=== PATIENT | male | born 1970 | race American Indian/Alaskan Native ===

== ENCOUNTER 2016-12-28 17:21 | Emergency (ER) | payer SELFPAY ==
[2016-12-28 17:21] VITALS: BMI 30.8
[2016-12-28 17:27] VITALS: BP 128/90; PULSE 93; RESP 16; TEMP 98.6; O2SAT 100
--- NOTE | 2016-12-28 18:00 | ED PDOC ---
HPI: General Adult Time Seen by Provider: 12/28/16 17:40 Chief Complaint (Nursing): Headache Chief Complaint (Provider): Neck pain History Per: Patient History/Exam Limitations: no limitations Onset/Duration Of Symptoms: Hrs (5x hours to provider) Current Symptoms Are (Timing): Still Present Severity: Moderate Additional Complaint(s): 46 year old male with a pertinent medical history of diabetes presents to the ED with complaints of neck pain and dizziness that started 5x hours prior to arrival. 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 He denies having loss of consciousness after the injury and headaches. PMD: Not provided. Past Medical History Reviewed: Historical Data, Nursing Documentation, Vital Signs Vital Signs: Last Vital Signs Temp 98.6 F 12/28/16 17:23 Pulse 93 H 12/28/16 17:23 Resp 16 12/28/16 17:23 BP 128/90 12/28/16 17:23 Pulse Ox 100 12/28/16 20:19 - Medical History PMH: Anxiety, Depression, Diabetes (NIDDM), HTN Denies: Chronic Kidney Disease - Surgical History Other surgeries: orthopedic surgery: right foot screws. left rotator cuff (2x) - Family History Family History: States: Unknown Family Hx - Social History Current smoker - smoking cessation education provided: No Alcohol: None Drugs: Denies - Immunization History Hx Tetanus Toxoid Vaccination: No Hx Influenza Vaccination: No Hx Pneumococcal Vaccination: No - Home Medications Home Medications: Ambulatory Orders Medication Instructions Recorded Allopurinol [Zyloprim] 100 mg PO DAILY 06/20/15 Omeprazole [Prilosec] 40 mg PO DAILY 06/20/15 Simvastatin [Zocor] 20 mg PO HS 06/20/15 Valsartan [Diovan] 160 mg PO DAILY 06/20/15 metFORMIN [glucOPHAGE] 500 mg PO BID 06/20/15 Indomethacin 25 mg PO Q6 #20 capsule 06/29/15 Ciprofloxacin HCl [Cipro] 500 mg PO BID #0 tablet 09/10/15 Docusate [Colace] 100 mg PO BID #0 cap 09/10/15 Metronidazole [Flagyl] 250 mg PO Q8H #0 tab 09/10/15 Albuterol HFA [Ventolin HFA 90 1 - 2 puff IH Q6 PRN #1 inhaler 09/21/15 mcg/actuation (8 g)] Bacitracin Ointment [Bacitracin] 1 applic TOP BID #1 tube 10/07/15 Albuterol HFA [Ventolin HFA 90 2 puff IH [id number] #1 unit 10/10/15 mcg/actuation (8 g)] Azithromycin [Zithromax] 250 mg PO DAILY #6 tab 10/10/15 Dicyclomine [Bentyl] 20 mg PO Q12 PRN #20 tab 11/14/15 Naproxen [Naprosyn] 500 mg PO BID PRN #30 tab 12/06/15 Naproxen [Naprosyn Tab] 375 mg PO Q8 PRN #21 tab 12/28/16 - Allergies Allergies/Adverse Reactions: Allergies Allergy/AdvReac Type Severity Reaction Status Date / Time No Known Allergies Allergy Verified 12/28/16 17:23 Review of Systems ROS Statement: Except As Marked, All Systems Reviewed And Found Negative Musculoskeletal: Positive for: Neck Pain Neurological: Positive for: Dizziness. Negative for: Headache Physical Exam - Reviewed Nursing Documentation Reviewed: Yes Vital Signs Reviewed: Yes - Physical Exam Appears: Positive for: Well, Non-toxic, No Acute Distress Head Exam: Positive for: ATRAUMATIC, NORMOCEPHALIC Skin: Positive for: Normal Color, Warm, Dry Eye Exam: Positive for: Normal appearance Cardiovascular/Chest: Positive for: Regular Rate, Rhythm Respiratory: Positive for: Normal Breath Sounds. Negative for: Respiratory Distress Back: Positive for: Vertebral Tenderness (tenderness around T1) Extremity: Positive for: Normal ROM Neurologic/Psych: Positive for: Alert, Oriented (3x) - ECG O2 Sat by Pulse Oximetry: 100 (RA) Pulse Ox Interpretation: Normal - CT Scan/US CT head w/o contrast Other Rad Studies (CT/US): Read By Radiologist, Radiology Report Reviewed (See MDM section for findings) CT cervical spine w/o contrast Other Rad Studies (CT/US): Read By Radiologist, Radiology Report Reviewed (see MDM section for findings) Medical Decision Making Medical Decision Makin:40 Iniital impression: 46 year old male with dizziness and neck pain status post injury. Initial plan: * CT cervical spine w/o contrast * CT head w/o contrast * reevaluation 19:37 CT cervical spine w/o contrast read and reviewed by radiologist. FINDINGS: Vertebrae: Multilevel spondylosis of the cervical spine. Multilevel bilateral neural foraminal narrowing. Retrolisthesis of C3 on C4 and C4 on C5 and C3 on C6. No acute fracture. Discs/spinal canal/neural foramina: No displaced fracture. Cervical straightening is present, which may be due to degenerative changes, cervical collar placement, positioning, muscular spasm or ligamentous injury. Correlate clinically. No spinal canal stenosis. Soft tissues: See above. Thyroid: Right thyroid nodule. Lung apices: Unremarkable as visualized. IMPRESSION: No displaced fracture. Multilevel spondylosis. Cervical straightening is present , which may be due to degenerative changes, cervical collar placement, positioning, muscular spasm or ligamentous injury. Correlate clinically. 19:39 CT head w/o contrast read and reviewed by radiologist. FINDINGS: Brain: Areas of decreased attenuation noted within the periventricular and subcortical white matter likely related to chronic microangiopathic ischemic changes given the patient's stated age. Streak artifact limits evaluation of the skull base. No evidence of acute intracranial hemorrhage. Correlate clinically. Ventricles: Unremarkable. No ventriculomegaly. Bones/joints: No displaced fracture. Soft tissues: Unremarkable. Sinuses: Unremarkable as visualized. No acute sinusitis. Mastoid air cells: Unremarkable as visualized. No mastoid effusion. IMPRESSION: Streak artifact limits evaluation of the skull base. No evidence of acute intracranial hemorrhage. Correlate clinically Scribe Attestation: Documented by Sarika Hendrickson, acting as a scribe for Sergio Huffman PA-C. Provider Scribe Attestation: All medical record entries made by the Scribe were at my direction and personally dictated by me. I have reviewed the chart and agree that the record accurately reflects my personal performance of the history, physical exam, medical decision making, and the department course for this patient. I have also personally directed, reviewed, and agree with the discharge instructions and disposition. Disposition - Clinical Impression Clinical Impression: Head injury, Contusion - Patient ED Disposition Is Patient to be Admitted: No - Disposition Referrals: [facility] [Outside] Disposition: Routine/Home Disposition Time: 20:12 Condition: FAIR Prescriptions: Naproxen [Naprosyn Tab] 375 mg PO Q8 PRN #21 tab PRN Reason: Pain, Severe (8-10) Instructions: Head Injury (ED), Contusion in Adults (DC) Forms: [employer] (Swedish)
--- NOTE | 2016-12-29 07:27 | CT ---
PROCEDURE: CT HEAD WITHOUT CONTRAST. HISTORY: pot dropped on head; c/o headache COMPARISON: None available. TECHNIQUE: Axial computed tomography images were obtained through the head/brain without intravenous contrast. Radiation dose: Total exam DLP = 905 mGy-cm. This CT exam was performed using one or more of the following dose reduction techniques: Automated exposure control, adjustment of the mA and/or kV according to patient size, and/or use of iterative reconstruction technique. FINDINGS: HEMORRHAGE: No intracranial hemorrhage. BRAIN: Overall parenchymal density is unremarkable with preserved seymour-white matter differentiation above and below the tentorium. No mass effect identified throughout. Sulci and cisterns appear within normal limits diffusely. VENTRICLES: Unremarkable. No hydrocephalus. CALVARIUM: Unremarkable. PARANASAL SINUSES: Unremarkable as visualized. No significant inflammatory changes. MASTOID AIR CELLS: Unremarkable as visualized. No inflammatory changes. OTHER FINDINGS: None. IMPRESSION: Normal CT of the Head.
--- NOTE | 2016-12-29 07:35 | CT ---
PROCEDURE: CT Cervical Spine without contrast HISTORY: Trauma COMPARISON: None available. TECHNIQUE: Axial computed tomography images were obtained of the cervical spine without the use of intravenous contrast. Coronal and sagittal reformatted images were created and reviewed. Radiation dose: Total exam DLP = 505 mGy-cm. This CT exam was performed using one or more of the following dose reduction techniques: Automated exposure control, adjustment of the mA and/or kV according to patient size, and/or use of iterative reconstruction technique. FINDINGS: VERTEBRAE: No fracture. Normal alignment. No destructive bony lesion. DISCS/SPINAL CANAL/NEURAL FORAMINA: No significant central canal or neural foraminal stenosis from C2-3 to C4-5, and from C6-7 and C7-T1. However, at C5-6, a disc osteophyte complex causes mild central canal stenosis with contributions from osteophytes at the of the bilateral uncovertebral joints results in mild bilateral neural foraminal stenosis as well. No prominent disc herniations appreciable however MRI is more sensitive and can be performed for follow-up if clinically warranted. PARASPINAL SOFT TISSUES: Unremarkable. OTHER FINDINGS: None. IMPRESSION: 1. No definitive posttraumatic findings acutely. 2. Mild degenerative central canal stenosis C5-6 as well as bilateral neural foramina at this level. 3. No gross disc herniation appreciable however MRI can be utilized for further characterization if clinically warranted.
== END 2016-12-28 20:28 | disposition home or self-care (01) ==
LOC: H.ER 17:21
DX: S09.90XA Unspecified injury of head, initial encounter (principal); W22.8XXA Striking against or struck by other objects, initial encounter; Y99.0 Civilian activity done for income or pay; E11.9 Type 2 diabetes mellitus without complications; F32.9 Major depressive disorder, single episode, unspecified; F41.9 Anxiety disorder, unspecified; I10 Essential (primary) hypertension; Z79.84 Long term (current) use of oral hypoglycemic drugs

== ENCOUNTER 2016-12-29 22:41 | Emergency (ER) | payer OTHER ==
[2016-12-29 22:41] VITALS: BMI 30.8
[2016-12-29] MEDS ORDERED: Amoxicillin-Clav 875-125 mg Tab PO SCH (23:30)
--- NOTE | 2016-12-29 23:36 | ED PDOC ---
HPI: Abdomen Time Seen by Provider: 12/29/16 23:08 Chief Complaint (Nursing): Abdominal Pain History Per: Patient History/Exam Limitations: no limitations Onset/Duration Of Symptoms: Gradual Severity: Mild Location Of Pain/Discomfort: Diffuse Quality Of Discomfort: Dull Associated Symptoms: denies: Fever, Chills, Nausea, Vomiting Exacerbating Factors: None Alleviating Factors: None Additional History Per: Patient Additional Complaint(s): Patient having pain and bleeding from rectum. Patient stating he has red blood w cleaning after bowel movement. Patient has lower stomach pain, 08/01. Hx of colitis Past Medical History Reviewed: Historical Data, Nursing Documentation, Vital Signs Vital Signs: Last Vital Signs Temp 99.1 F 12/29/16 22:51 Pulse 80 12/29/16 22:51 Resp 12 12/29/16 22:51 BP 150/88 12/29/16 22:51 Pulse Ox 99 12/29/16 23:36 - Medical History PMH: Anxiety, COPD, Depression, Diabetes (NIDDM), Emphysema, HTN Denies: Asthma, Chronic Kidney Disease - Family History Family History: States: Unknown Family Hx - Living Arrangements Living Arrangements: With Family - Social History Current smoker - smoking cessation education provided: No Drugs: Denies - Immunization History Hx Tetanus Toxoid Vaccination: No Hx Influenza Vaccination: No Hx Pneumococcal Vaccination: No - Home Medications Home Medications: Ambulatory Orders Medication Instructions Recorded Allopurinol [Zyloprim] 100 mg PO DAILY 06/20/15 Omeprazole [Prilosec] 40 mg PO DAILY 06/20/15 Simvastatin [Zocor] 20 mg PO HS 06/20/15 Valsartan [Diovan] 160 mg PO DAILY 06/20/15 metFORMIN [glucOPHAGE] 500 mg PO BID 06/20/15 Indomethacin 25 mg PO Q6 #20 capsule 06/29/15 Ciprofloxacin HCl [Cipro] 500 mg PO BID #0 tablet 09/10/15 Docusate [Colace] 100 mg PO BID #0 cap 09/10/15 Metronidazole [Flagyl] 250 mg PO Q8H #0 tab 09/10/15 Albuterol HFA [Ventolin HFA 90 1 - 2 puff IH Q6 PRN #1 inhaler 09/21/15 mcg/actuation (8 g)] Bacitracin Ointment [Bacitracin] 1 applic TOP BID #1 tube 10/07/15 Albuterol HFA [Ventolin HFA 90 2 puff IH [id number] #1 unit 10/10/15 mcg/actuation (8 g)] Azithromycin [Zithromax] 250 mg PO DAILY #6 tab 10/10/15 Dicyclomine [Bentyl] 20 mg PO Q12 PRN #20 tab 11/14/15 Naproxen [Naprosyn] 500 mg PO BID PRN #30 tab 12/06/15 Naproxen [Naprosyn Tab] 375 mg PO Q8 PRN #21 tab 12/28/16 Acetaminophen 650 mg PO Q6 #30 capsule 12/30/16 Amoxicillin/Clavulanate [Augmentin 1 tab PO BID 14 Days 12/30/16 875 MG-125 MG] - Allergies Allergies/Adverse Reactions: Allergies Allergy/AdvReac Type Severity Reaction Status Date / Time No Known Allergies Allergy Verified 12/28/16 17:23 Review of Systems ROS Statement: Except As Marked, All Systems Reviewed And Found Negative Constitutional: Negative for: Fever, Chills Cardiovascular: Negative for: Chest Pain, Palpitations, Orthopnea Respiratory: Negative for: Cough, Shortness of Breath Gastrointestinal: Positive for: Abdominal Pain, Hematochezia. Negative for: Nausea, Vomiting, Hematemesis Genitourinary Male: Negative for: Dysuria Neurological: Negative for: Weakness, Numbness Physical Exam - Reviewed Nursing Documentation Reviewed: Yes Vital Signs Reviewed: Yes - Physical Exam Appears: Positive for: Well, No Acute Distress Head Exam: Positive for: NORMAL INSPECTION, NORMOCEPHALIC Eye Exam: Positive for: Normal appearance, PERRL Neck: Positive for: Normal, Painless ROM, Supple Cardiovascular/Chest: Positive for: Regular Rate, Rhythm, Chest Non Tender Respiratory: Positive for: Normal Breath Sounds. Negative for: Decreased Breath Sounds, Accessory Muscle Use, Crackles, Rales, Rhonchi, Stridor, Wheezing , Respiratory Distress Gastrointestinal/Abdominal: Positive for: Normal Exam, Bowel Sounds, Soft. Negative for: Tenderness Back: Positive for: Normal Inspection. Negative for: L CVA Tenderness, R CVA Tenderness Rectal: Positive for: Rectal Tone Is: (nml), Blood Streaked Stool, Hemorrhoids ( mild non thrombosed). Negative for: Tenderness Extremity: Positive for: Normal ROM. Negative for: Tenderness, Pedal Edema, Calf Tenderness, Deformity, Swelling Neurologic/Psych: Positive for: Alert, auto body repairman II-XII, Oriented. Negative for: Motor/Sensory Deficits - Laboratory Results Result Diagrams: 12/29/16 23:45 12/29/16 23:45 - ECG O2 Sat by Pulse Oximetry: 99 Pulse Ox Interpretation: Normal - Progress ED Course And Treament: labs nml repeat abd exam nml advise close f/u in emd clinic. advise abx Re-evaluation Time: 23:36 Condition: Improved Disposition - Clinical Impression Clinical Impression: Colitis, Bleeding hemorrhoid - Patient ED Disposition Is Patient to be Admitted: No Counseled Patient/Family Regarding: Studies Performed, Diagnosis, Need For Followup, Rx Given - Disposition Referrals: [facility] [place] [Outside] (2 to 3 days) Disposition: Routine/Home Disposition Time: 00:02 Condition: GOOD Prescriptions: Acetaminophen 650 mg PO Q6 #30 capsule Amoxicillin/Clavulanate [Augmentin 875 MG-125 MG] 1 tab PO BID 14 Days Instructions: Rectal Bleeding (ED), Hemorrhoids (ED) Forms: [employer] ([place])
[2016-12-29] MEDS ORDERED: Amoxicillin-Clav 875-125 mg Tab PO ONE (23:47)
[2016-12-29 23:48] LABS: BASO % 0.5 % (0.0-2.0); EOS # 0.1 K/uL (0.0-0.7); EOS % 1.4 % (0.0-4.0); HEMATOCRIT 38.5 % (35.0-51.0); LYMPH # 1.2 K/uL (1.0-4.3); LYMPH % 25.7 % (20.0-40.0); MEAN CELL VOLUME 89.8 fl (80.0-94.0); MEAN CORPUSCULAR HEMOGLOBIN 29.2 pg (27.0-31.0); MEAN CORPUSCULAR HGB CONC 32.5 g/dL (33.0-37.0); MEAN PLATELET VOLUME 9.2 fl (7.2-11.7); MONO # 0.5 K/uL (0.0-0.8); MONO % 11.5 % (0.0-10.0); NEUT # 2.9 K/uL (1.8-7.0); NEUT % 60.9 % (50.0-75.0); RED CELL DISTRIBUTION WIDTH 14.4 % (11.5-14.5); WHITE BLOOD COUNT 4.8 K/uL (4.8-10.8)
[2016-12-29 23:57] LABS: ALB/GLOB RATIO 1.3 (1.0-2.1); BILIRUBIN,TOTAL 0.4 mg/dl (0.2-1.3); CALCIUM 9.2 mg/dL (8.4-10.2); POTASSIUM 4.4 MMOL/L (3.6-5.0); TOTAL PROTEIN 6.9 G/DL (6.3-8.2)
[2016-12-30 00:19] VITALS: BP 140/80; PULSE 83; RESP 17; TEMP 98.5; O2SAT 98
== END 2016-12-30 00:15 | disposition home or self-care (01) ==
LOC: H.ER 22:41
DX: K64.9 Unspecified hemorrhoids (principal); K52.9 Noninfective gastroenteritis and colitis, unspecified; E11.9 Type 2 diabetes mellitus without complications; F32.9 Major depressive disorder, single episode, unspecified; F41.9 Anxiety disorder, unspecified; I10 Essential (primary) hypertension; Z79.84 Long term (current) use of oral hypoglycemic drugs

== ENCOUNTER 2017-01-16 11:41 | Emergency (ER) | payer SELFPAY ==
[2017-01-16 11:41] VITALS: BMI 30.8
[2017-01-16 12:01] VITALS: BP 138/90; PULSE 77; RESP 18; TEMP 98; O2SAT 100
--- NOTE | 2017-01-16 12:56 | ED PDOC ---
HPI: Back Time Seen by Provider: 01/16/17 12:05 Chief Complaint (Nursing): Back Pain Chief Complaint (Provider): tailbone pain History Per: Patient History/Exam Limitations: no limitations Onset/Duration Of Symptoms: Days (x 2-3 weeks) Current Symptoms Are (Timing): Still Present Additional Complaint(s): Chilango is a 46 y/o male with a past medical history of COPD, Diabetes, CAD, and Colitis, who presents to the ED complaining of pain to tailbone after sustaining a fall 2-3 weeks ago. Reports he fell on his tailbone, and now has pain that worsens with walking or sneezing or any movement. He has been taking Tylenol for pain without relief, last dose was yesterday. Patient denies radiation of pain to legs and he denies any bowel or bladder dysfunction. PMD: none Past Medical History Reviewed: Historical Data, Nursing Documentation, Vital Signs Vital Signs: Last Vital Signs Temp 98 F 01/16/17 11:58 Pulse 77 01/16/17 11:58 Resp 18 01/16/17 11:58 BP 138/90 01/16/17 11:58 Pulse Ox 100 01/16/17 11:58 - Medical History PMH: Anxiety, COPD, Depression, Diabetes (NIDDM), HTN - Surgical History Surgical History: Coronary Stent Other surgeries: Left shoulder pain, right foot surgery - Family History Family History: States: No Known Family Hx - Living Arrangements Living Arrangements: Alone - Social History Current smoker - smoking cessation education provided: Yes (quit 2 weeks ago) Alcohol: None Drugs: Denies - Home Medications Home Medications: Ambulatory Orders Medication Instructions Recorded Allopurinol [Zyloprim] 100 mg PO DAILY 06/20/15 Omeprazole [Prilosec] 40 mg PO DAILY 06/20/15 Simvastatin [Zocor] 20 mg PO HS 06/20/15 Valsartan [Diovan] 160 mg PO DAILY 06/20/15 metFORMIN [glucOPHAGE] 500 mg PO BID 06/20/15 Indomethacin 25 mg PO Q6 #20 capsule 06/29/15 Ciprofloxacin HCl [Cipro] 500 mg PO BID #0 tablet 09/10/15 Docusate [Colace] 100 mg PO BID #0 cap 09/10/15 Metronidazole [Flagyl] 250 mg PO Q8H #0 tab 09/10/15 Albuterol HFA [Ventolin HFA 90 1 - 2 puff IH Q6 PRN #1 inhaler 09/21/15 mcg/actuation (8 g)] Bacitracin Ointment [Bacitracin] 1 applic TOP BID #1 tube 10/07/15 Albuterol HFA [Ventolin HFA 90 2 puff IH [id number] #1 unit 10/10/15 mcg/actuation (8 g)] Azithromycin [Zithromax] 250 mg PO DAILY #6 tab 10/10/15 Dicyclomine [Bentyl] 20 mg PO Q12 PRN #20 tab 11/14/15 Naproxen [Naprosyn] 500 mg PO BID PRN #30 tab 12/06/15 Naproxen [Naprosyn Tab] 375 mg PO Q8 PRN #21 tab 12/28/16 Acetaminophen 650 mg PO Q6 #30 capsule 12/30/16 Amoxicillin/Clavulanate [Augmentin 1 tab PO BID 14 Days tab 12/30/16 875 MG-125 MG] Ibuprofen [Motrin Tab] 800 mg PO Q8 PRN #20 tab 01/16/17 - Allergies Allergies/Adverse Reactions: Allergies Allergy/AdvReac Type Severity Reaction Status Date / Time No Known Allergies Allergy Verified 12/28/16 17:23 Review of Systems ROS Statement: Except As Marked, All Systems Reviewed And Found Negative Genitourinary Male: Negative for: Dysuria, Frequency, Incontinence Musculoskeletal: Positive for: Back Pain (pain to tailbone region s/p fall 3 weeks ago) Neurological: Negative for: Weakness, Numbness Physical Exam - Reviewed Nursing Documentation Reviewed: Yes Vital Signs Reviewed: Yes - Physical Exam Appears: Positive for: Well, Non-toxic, No Acute Distress Head Exam: Positive for: ATRAUMATIC, NORMAL INSPECTION, NORMOCEPHALIC Skin: Positive for: Normal Color. Negative for: Rash Eye Exam: Positive for: Normal appearance Back: Positive for: Vertebral Tenderness (Tenderness to the sacral and coccygeal region with mild STS, no ecchymosis or deformity noted) Extremity: Positive for: Normal ROM, Other (negative bilateral straight leg raise) Neurologic/Psych: Positive for: Alert, Oriented, Gait (steady) - ECG O2 Sat by Pulse Oximetry: 100 (RA) Pulse Ox Interpretation: Normal - Other Rad sacrum/coccyx x-ray X-Ray: Interpreted by Me, Viewed By Me X-Ray Interpretation: no fx, no dis Medical Decision Making Medical Decision Makin46 year old with tailbone injury Time: 12:56 Initial Plan: --Ordered X-Ray Sacrum/Coccyx --Patient given Toradol injection IM Patient is aware of x-ray results, all questions answered. Patient feels better after Toradol injection. Prescription given for Motrin. Patient referred to clinic for follow-up. Scribe Attestation: Documented by Laura Akbar, acting as a scribe for Marily Jefferson PA-C Provider Scribe Attestation: All medical record entries made by the Scribe were at my direction and personally dictated by me. I have reviewed the chart and agree that the record accurately reflects my personal performance of the history, physical exam, medical decision making, and the department course for this patient. I have also personally directed, reviewed, and agree with the discharge instructions and disposition. Disposition - Clinical Impression Clinical Impression: Coccygeal contusion - Patient ED Disposition Is Patient to be Admitted: No Counseled Patient/Family Regarding: Studies Performed, Diagnosis, Need For Followup, Rx Given - Disposition Referrals: [facility] [Outside] Disposition: Routine/Home Disposition Time: 14:09 Condition: IMPROVED Additional Instructions: Ice and rest the affected area. Take prescription meds as directed as needed for pain. Follow-up with clinic in 2-3 days. Prescriptions: Ibuprofen [Motrin Tab] 800 mg PO Q8 PRN #20 tab PRN Reason: Pain, Moderate (4-7) Instructions: Coccyx Injury (ED) Forms: [employer] (Burmese)
--- NOTE | 2017-01-16 14:35 | RAD ---
PROCEDURE: Radiographs of the Sacrum and Coccyx HISTORY: Trauma COMPARISON: None available. TECHNIQUE: Frontal and lateral views of the sacrum and coccyx FINDINGS: BONES: Sacrum and coccyx are normal in appearance. The sacrococcygeal angulation is normal. No acute fracture or focal lesion. Bone alignment and mineralization are normal. SACROILIAC JOINTS: The sacroiliac joints are normal. There is mild degenerative osteoarthrosis at the sacrococcygeal joint. OTHER FINDINGS: None. IMPRESSION: No acute fracture or dislocation.
== END 2017-01-16 14:23 | disposition home or self-care (01) ==
LOC: H.ER 11:41
DX: M54.9 Dorsalgia, unspecified (principal)
CPT/HCPCS: 72220; 96372; 99281; J1885

== ENCOUNTER 2017-03-06 19:40 | Emergency (ER) | payer MEDICAID ==
[2017-03-06 19:40] VITALS: BMI 26.8
[2017-03-06 20:07] VITALS: BP 155/97; PULSE 85; RESP 16; TEMP 97.2; O2SAT 99
[2017-03-06] MEDS ORDERED: Fluorescein 1 mg Ophthalmic Strip ONE (20:39)
--- NOTE | 2017-03-06 21:02 | ED PDOC ---
HPI: Eye Injury/Pain Time Seen by Provider: 03/06/17 20:25 Chief Complaint (Nursing): Eye Problem Chief Complaint (Provider): eye injury History Per: Patient History/Exam Limitations: no limitations Injury To Eye?: No Quality: Burning Associated Symptoms: Itching, Discharge From Eye. denies: Pain, Decreased Vision, Swelling, FB Sensation Additional Complaint(s): 47yo M for eval of right eye redness, itching burning x 1 weeks with drainage Past Medical History Reviewed: Historical Data, Nursing Documentation, Vital Signs Vital Signs: Last Vital Signs Temp 97.2 F L 03/06/17 20:04 Pulse 85 03/06/17 20:04 Resp 16 03/06/17 20:04 BP 155/97 H 03/06/17 20:04 Pulse Ox 99 03/06/17 20:04 - Medical History PMH: Anxiety, COPD, Depression, Diabetes (NIDDM), Emphysema, HTN Denies: Asthma, Chronic Kidney Disease - Surgical History Surgical History: Coronary Stent - Family History Family History: States: Unknown Family Hx - Immunization History Hx Tetanus Toxoid Vaccination: No Hx Influenza Vaccination: No Hx Pneumococcal Vaccination: No - Home Medications Home Medications: Ambulatory Orders Medication Instructions Recorded Allopurinol [Zyloprim] 100 mg PO DAILY 06/20/15 Omeprazole [Prilosec] 40 mg PO DAILY 06/20/15 Simvastatin [Zocor] 20 mg PO HS 06/20/15 Valsartan [Diovan] 160 mg PO DAILY 06/20/15 metFORMIN [glucOPHAGE] 500 mg PO BID 06/20/15 Indomethacin 25 mg PO Q6 #20 capsule 06/29/15 Ciprofloxacin HCl [Cipro] 500 mg PO BID #0 tablet 09/10/15 Docusate [Colace] 100 mg PO BID #0 cap 09/10/15 Metronidazole [Flagyl] 250 mg PO Q8H #0 tab 09/10/15 Albuterol HFA [Ventolin HFA 90 1 - 2 puff IH Q6 PRN #1 inhaler 09/21/15 mcg/actuation (8 g)] Bacitracin Ointment [Bacitracin] 1 applic TOP BID #1 tube 10/07/15 Albuterol HFA [Ventolin HFA 90 2 puff IH [id number] #1 unit 10/10/15 mcg/actuation (8 g)] Azithromycin [Zithromax] 250 mg PO DAILY #6 tab 10/10/15 Dicyclomine [Bentyl] 20 mg PO Q12 PRN #20 tab 11/14/15 Naproxen [Naprosyn] 500 mg PO BID PRN #30 tab 12/06/15 Naproxen [Naprosyn Tab] 375 mg PO Q8 PRN #21 tab 12/28/16 Acetaminophen 650 mg PO Q6 #30 capsule 12/30/16 Amoxicillin/Clavulanate [Augmentin 1 tab PO BID 14 Days tab 12/30/16 875 MG-125 MG] Ibuprofen [Motrin Tab] 800 mg PO Q8 PRN #20 tab 01/16/17 Tobramycin 0.3% [Tobrex 0.3% Ophth 1 drop OD 5XD #1 bottle 03/04/17 Soln] Polymyxin/Trimethoprim Sulfate 100 drop OD BID #1 bottle 03/06/17 [Polytrim Ophth Soln] - Allergies Allergies/Adverse Reactions: Allergies Allergy/AdvReac Type Severity Reaction Status Date / Time No Known Allergies Allergy Verified 12/28/16 17:23 Review of Systems ROS Statement: Except As Marked, All Systems Reviewed And Found Negative Constitutional: Negative for: Fever, Chills Eyes: Positive for: Vision Change, Conjunctivae Inflammation, Redness Skin: Negative for: Rash Physical Exam - Reviewed Nursing Documentation Reviewed: Yes Vital Signs Reviewed: Yes - Physical Exam Appears: Positive for: Well, Non-toxic, No Acute Distress Head Exam: Positive for: ATRAUMATIC, NORMAL INSPECTION, NORMOCEPHALIC Skin: Positive for: Normal Color, Warm, DRY Eye Exam: Positive for: EOMI, PERRL, Conjunctival injection (right eye-no hyphema no subconjunctival hemmorrage ) ENT: Negative for: TM Is/Are, Sinus Pain/Drainage, Tonsillar Swelling Cardiovascular/Chest: Positive for: Regular Rate, Rhythm Respiratory: Positive for: CNT, Normal Breath Sounds Neurologic/Psych: Positive for: Alert, Oriented - ECG O2 Sat by Pulse Oximetry: 99 - Progress ED Course And Treament: conjunctivitis: polytrim however due to DM hx pt advised f/u with custom ski maker Medical Decision Making Medical Decision Making: dx: fPorfiriou with custom ski maker Disposition - Clinical Impression Clinical Impression: Conjunctivitis - Patient ED Disposition Is Patient to be Admitted: No Counseled Patient/Family Regarding: Need For Followup - Disposition Disposition: Routine/Home Disposition Time: 21:05 Condition: STABLE Prescriptions: Polymyxin/Trimethoprim Sulfate [Polytrim Ophth Soln] 100 drop OD BID #1 bottle Instructions: Conjunctivitis (ED)
== END 2017-03-06 22:47 | disposition home or self-care (01) ==
LOC: H.ER 19:40
DX: H10.9 Unspecified conjunctivitis (principal); E11.9 Type 2 diabetes mellitus without complications; Z86.59 Personal history of other mental and behavioral disorders; I10 Essential (primary) hypertension; Z95.5 Presence of coronary angioplasty implant and graft; J44.9 Chronic obstructive pulmonary disease, unspecified; Z79.84 Long term (current) use of oral hypoglycemic drugs

== ENCOUNTER 2017-04-04 19:37 | Emergency (ER) | payer MEDICAID, OTHER ==
[2017-04-04 19:37] VITALS: BMI 26.8
[2017-04-04 20:12] VITALS: PULSE 92; RESP 18; TEMP 97.6
--- NOTE | 2017-04-04 21:18 | ED PDOC ---
Lower Extremity Pain/Injury Time Seen by Provider: 04/04/17 20:21 Chief Complaint (Nursing): Lower Extremity Problem/Injury Chief Complaint (Provider): swelling to feet History Per: Patient Additional Complaint(s): Chilango is a 47 year old male who presents to the Emergency Department with bilateral foot swelling that started about 1 week ago. Patient currently lives in [facility] care home. He denies any trauma or injury. Patient able to walk but has pain when doing so. He denies any fever or chills. Patient denies chest pain, shortness of breath or dyspnea on exertion. PMD: Nicolas Ryan Past Medical History Reviewed: Historical Data, Nursing Documentation, Vital Signs Vital Signs: Last Vital Signs Temp 97.6 F 04/04/17 20:09 Pulse 92 H 04/04/17 20:09 Resp 18 04/04/17 20:09 BP 147/111 H 04/04/17 20:09 Pulse Ox 100 04/04/17 20:09 - Medical History PMH: Anxiety, COPD, Depression, Diabetes (NIDDM), HTN - Surgical History Surgical History: Coronary Stent Other surgeries: right foot surgery - Family History Family History: States: No Known Family Hx - Living Arrangements Living Arrangements: Other (lives in care home) - Social History Current smoker - smoking cessation education provided: No Alcohol: None Drugs: Denies - Home Medications Home Medications: Ambulatory Orders Medication Instructions Recorded Allopurinol [Zyloprim] 100 mg PO DAILY 06/20/15 Omeprazole [Prilosec] 40 mg PO DAILY 06/20/15 Simvastatin [Zocor] 20 mg PO HS 06/20/15 Valsartan [Diovan] 160 mg PO DAILY 06/20/15 metFORMIN [glucOPHAGE] 500 mg PO BID 06/20/15 Indomethacin 25 mg PO Q6 #20 capsule 06/29/15 Ciprofloxacin HCl [Cipro] 500 mg PO BID #0 tablet 09/10/15 Docusate [Colace] 100 mg PO BID #0 cap 09/10/15 Metronidazole [Flagyl] 250 mg PO Q8H #0 tab 09/10/15 Albuterol HFA [Ventolin HFA 90 1 - 2 puff IH Q6 PRN #1 inhaler 09/21/15 mcg/actuation (8 g)] Bacitracin Ointment [Bacitracin] 1 applic TOP BID #1 tube 10/07/15 Albuterol HFA [Ventolin HFA 90 2 puff IH [id number] #1 unit 10/10/15 mcg/actuation (8 g)] Azithromycin [Zithromax] 250 mg PO DAILY #6 tab 10/10/15 Dicyclomine [Bentyl] 20 mg PO Q12 PRN #20 tab 11/14/15 Naproxen [Naprosyn] 500 mg PO BID PRN #30 tab 12/06/15 Naproxen [Naprosyn Tab] 375 mg PO Q8 PRN #21 tab 12/28/16 Acetaminophen 650 mg PO Q6 #30 capsule 12/30/16 Amoxicillin/Clavulanate [Augmentin 1 tab PO BID 14 Days tab 12/30/16 875 MG-125 MG] Ibuprofen [Motrin Tab] 800 mg PO Q8 PRN #20 tab 01/16/17 Tobramycin 0.3% [Tobrex 0.3% Ophth 1 drop OD 5XD #1 bottle 03/04/17 Soln] Polymyxin/Trimethoprim Sulfate 100 drop OD BID #1 bottle 03/06/17 [Polytrim Ophth Soln] Ibuprofen [Motrin Tab] 800 mg PO Q8 PRN #20 tab 04/04/17 - Allergies Allergies/Adverse Reactions: Allergies Allergy/AdvReac Type Severity Reaction Status Date / Time No Known Allergies Allergy Verified 04/04/17 20:09 Wells Criteria for PE - Wells Criteria for Pulmonary Embolism Clinical Signs and Symptoms of DVT: No P.E is #1 Diagnosis, or Equally Likely: No Heart Rate >100: No Immobilization at least 3 days;Surgery previous 4 weeks: No Previous, objectively diagnosed PE or DVT: No Hemoptysis: No Malignancy w/treatment within 6 months, or palliative: No Total Score: 0 Review of Systems ROS Statement: Except As Marked, All Systems Reviewed And Found Negative Constitutional: Negative for: Fever, Chills Cardiovascular: Negative for: Chest Pain Respiratory: Negative for: Cough, Shortness of Breath Musculoskeletal: Positive for: Foot Pain (bilateral foot pain and swelling) Neurological: Negative for: Headache, Dizziness Physical Exam - Reviewed Nursing Documentation Reviewed: Yes Vital Signs Reviewed: Yes - Physical Exam Appears: Positive for: Non-toxic Head Exam: Positive for: ATRAUMATIC, NORMAL INSPECTION, NORMOCEPHALIC Skin: Positive for: Normal Color. Negative for: Rash Eye Exam: Positive for: Normal appearance Cardiovascular/Chest: Positive for: Regular Rate, Rhythm Respiratory: Positive for: Normal Breath Sounds. Negative for: Respiratory Distress Pulses-Dorsalis Pedis (L): 2+ Pulses-Dorsalis Pedis (R): 2+ Extremity: Positive for: Swelling (Non-pitting edema to feet bilaterally with no erythema or warmth, no skin breakdown or evidence of infection). Negative for: Calf Tenderness, Deformity Neurologic/Psych: Positive for: Alert, Oriented (x 3), Gait (steady) - Laboratory Results Result Diagrams: 04/04/17 21:38 04/04/17 21:53 - ECG O2 Sat by Pulse Oximetry: 100 (RA) Pulse Ox Interpretation: Normal - Other Rad X-ray right and left feet X-Ray: Interpreted by Me, Viewed By Me X-Ray Interpretation: no acute finding Medical Decision Making Medical Decision Making: Time: 20:35 Plan: - B-Type Natriuretic Peptide - CMP - CBC - Bilateral Foot X-Ray - Motrin Tab - Foot Left 3 Views Routine X-Ray Patient is aware of all diagnostic testing results, all questions answered. Rx motrin given. Patient was referred to podiatry clinic for follow up. Scribe Attestation: Documented by Ron Max, acting as a scribe for Marily Jefferson PA-C Provider Scribe Attestation: All medical record entries made by the Scribe were at my direction and personally dictated by me. I have reviewed the chart and agree that the record accurately reflects my personal performance of the history, physical exam, medical decision making, and the department course for this patient. I have also personally directed, reviewed, and agree with the discharge instructions and disposition. Disposition - Clinical Impression Clinical Impression: Edema of both feet - Patient ED Disposition Is Patient to be Admitted: No Counseled Patient/Family Regarding: Studies Performed, Diagnosis, Need For Followup, Rx Given - Disposition Referrals: Podiatry Clinic [Outside] Disposition: Routine/Home Disposition Time: 22:48 Condition: STABLE Additional Instructions: Elevate legs as much as possible. Take rx meds as directed as needed for pain. Follow up with podiatry clinic. Prescriptions: Ibuprofen [Motrin Tab] 800 mg PO Q8 PRN #20 tab PRN Reason: Pain, Moderate (4-7) Instructions: Leg Edema (ED), Foot Sprain (ED) Forms: [employer] (Japanese) Results - Lab Results Lab Results: 04/04/17 04/04/17 21:53 21:38 WBC 5.3 RBC 4.42 Hgb 12.8 Hct 39.2 MCV 88.8 MCH 29.0 MCHC 32.7 L RDW 13.2 Plt Count 205 MPV 8.0 Neut % (Auto) 48.0 L Lymph % (Auto) 38.8 [place] % (Auto) 9.4 Eos % (Auto) 3.1 Baso % (Auto) 0.7 Neut # 2.6 Lymph # 2.1 [place] # 0.5 Eos # 0.2 Baso # 0.0 Sodium 138 Potassium 4.6 Chloride 100 Carbon Dioxide 31 H Anion Gap 12 BUN 30 H Creatinine 1.4 Est GFR ( Amer) > 60 Est GFR (Non-Af Amer) 54 Random Glucose 113 H Calcium 9.2 Total Bilirubin 0.4 AST 33 ALT 49 Alkaline Phosphatase 88 NT-Pro-B Natriuret Pep 75.6 Total Protein 7.8 Albumin 4.2 Globulin 3.6 Albumin/Globulin Ratio 1.2
[2017-04-04 21:57] LABS: BASO % 0.7 % (0.0-2.0); EOS # 0.2 K/uL (0.0-0.7); EOS % 3.1 % (0.0-4.0); HEMATOCRIT 39.2 % (35.0-51.0); LYMPH # 2.1 K/uL (1.0-4.3); LYMPH % 38.8 % (20.0-40.0); MEAN CELL VOLUME 88.8 fl (80.0-94.0); MEAN CORPUSCULAR HGB CONC 32.7 g/dL (33.0-37.0); MONO # 0.5 K/uL (0.0-0.8); MONO % 9.4 % (0.0-10.0); NEUT # 2.6 K/uL (1.8-7.0); RED CELL DISTRIBUTION WIDTH 13.2 % (11.5-14.5); WHITE BLOOD COUNT 5.3 K/uL (4.8-10.8)
[2017-04-04 22:08] LABS: ALB/GLOB RATIO 1.2 (1.0-2.1); ALKALINE PHOSPHATASE 88 U/L (38-126); ALT/SGPT 49 U/L (21-72); AST/SGOT 33 U/L (17-59); BILIRUBIN,TOTAL 0.4 mg/dl (0.2-1.3); BLOOD UREA NITROGEN 30 mg/dl (9-20); CALCIUM 9.2 mg/dL (8.4-10.2); CARBON DIOXIDE 31 mmol/L (22-30); CHLORIDE 100 mmol/L (98-107); GFR AFRICAN-AMERICAN > 60; GLUCOSE,RANDOM 113 mg/dL (75-110); POTASSIUM 4.6 MMOL/L (3.6-5.0); SODIUM 138 mmol/l (132-148); TOTAL PROTEIN 7.8 G/DL (6.3-8.2)
[2017-04-04 23:15] VITALS: BP 140/80; O2SAT 99
--- NOTE | 2017-04-05 08:05 | RAD ---
PROCEDURE: Bilateral Feet Radiographs. HISTORY: pain COMPARISON: None. FINDINGS: BONES: No acute fracture or destructive bony lesion appreciable bilaterally. JOINTS: Moderate to severe bilateral hallux valgus deformities are identified with advanced degenerative joint changes at the 1st metatarsophalangeal joint. Lesser degenerative changes seen throughout the interphalangeal joints bilaterally, diffusely. No additional degenerative changes seen the bilateral feet. Three status post ORIF right 5th metatarsal base with a solitary compression screw placed for apparently healed fracture. SOFT TISSUES: Right Foot: Normal. Left Foot: Normal. OTHER FINDINGS: None. 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 No acute fracture or dislocation. Prior ORIF metatarsal right 5th metatarsal base.
== END 2017-04-04 23:16 | disposition home or self-care (01) ==
LOC: H.ER 19:37
DX: R60.0 Localized edema (principal); E11.9 Type 2 diabetes mellitus without complications; F32.9 Major depressive disorder, single episode, unspecified; F41.9 Anxiety disorder, unspecified; I10 Essential (primary) hypertension; Z79.84 Long term (current) use of oral hypoglycemic drugs; Z95.5 Presence of coronary angioplasty implant and graft

== ENCOUNTER 2017-04-10 05:55 | Emergency (ER) | payer MEDICAID, OTHER ==
[2017-04-10 05:55] VITALS: BMI 26.8
[2017-04-10 06:26] VITALS: BP 133/85; PULSE 88; RESP 18; TEMP 98.2; O2SAT 99
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
== END 2017-04-10 06:43 | disposition home or self-care (01) ==
LOC: H.ER 05:55
DX: M10.9 Gout, unspecified (principal); E11.9 Type 2 diabetes mellitus without complications; F17.200 Nicotine dependence, unspecified, uncomplicated; I10 Essential (primary) hypertension; Z86.59 Personal history of other mental and behavioral disorders; J44.9 Chronic obstructive pulmonary disease, unspecified; Z79.84 Long term (current) use of oral hypoglycemic drugs; Z95.5 Presence of coronary angioplasty implant and graft
CPT/HCPCS: 96372; 99283; J1885

== ENCOUNTER 2017-04-20 23:33 | Emergency (ER) | payer MEDICAID ==
[2017-04-20 23:33] VITALS: BMI 26.8
[2017-04-20 23:41] VITALS: BP 140/67; PULSE 74; RESP 16; TEMP 97.7; O2SAT 95
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
[2017-04-21 00:49] LABS: EOS # 0.3 K/uL (0.0-0.7); EOS % 6.1 % (0.0-4.0); HEMOGLOBIN 12.4 g/dL (12.0-18.0); LYMPH % 42.5 % (20.0-40.0); MEAN CELL VOLUME 89.1 fl (80.0-94.0); MEAN CORPUSCULAR HEMOGLOBIN 29.4 pg (27.0-31.0); MEAN PLATELET VOLUME 8.1 fl (7.2-11.7); MONO # 0.5 K/uL (0.0-0.8); MONO % 11.1 % (0.0-10.0); NEUT # 1.8 K/uL (1.8-7.0); NEUT % 39.3 % (50.0-75.0); RBC 4.2 Mil/uL (4.40-5.90); RED CELL DISTRIBUTION WIDTH 13.6 % (11.5-14.5); WHITE BLOOD COUNT 4.6 K/uL (4.8-10.8)
== END 2017-04-21 05:49 | disposition home or self-care (01) ==
LOC: H.ER 23:33
DX: B35.3 Tinea pedis (principal); E11.9 Type 2 diabetes mellitus without complications; Z79.84 Long term (current) use of oral hypoglycemic drugs; F32.9 Major depressive disorder, single episode, unspecified; F41.9 Anxiety disorder, unspecified; I10 Essential (primary) hypertension; J44.9 Chronic obstructive pulmonary disease, unspecified; Z95.5 Presence of coronary angioplasty implant and graft
CPT/HCPCS: 82948; 84550; 85025; 96372; 99283; J1885

== ENCOUNTER 2017-04-23 15:38 | Emergency (ER) | payer MEDICAID ==
[2017-04-23 15:38] VITALS: BMI 26.8
[2017-04-23 15:44] VITALS: BP 137/86; PULSE 88; RESP 18; TEMP 97.2; O2SAT 100
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
== END 2017-04-23 16:56 | disposition home or self-care (01) ==
LOC: H.ER 15:38
DX: M10.9 Gout, unspecified (principal); E11.9 Type 2 diabetes mellitus without complications; Z95.5 Presence of coronary angioplasty implant and graft; F32.9 Major depressive disorder, single episode, unspecified; F41.9 Anxiety disorder, unspecified; I10 Essential (primary) hypertension; J44.9 Chronic obstructive pulmonary disease, unspecified; Z79.84 Long term (current) use of oral hypoglycemic drugs

== ENCOUNTER 2017-04-29 02:51 | Emergency (ER) | payer MEDICAID ==
[2017-04-29 02:51] VITALS: BMI 26.8
[2017-04-29 03:01] VITALS: BP 149/84; PULSE 86; RESP 19; TEMP 97.5; O2SAT 99
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
== END 2017-04-29 06:56 | disposition home or self-care (01) ==
LOC: H.ER 02:51
DX: M79.673 Pain in unspecified foot (principal); E11.9 Type 2 diabetes mellitus without complications; Z79.84 Long term (current) use of oral hypoglycemic drugs; Z95.5 Presence of coronary angioplasty implant and graft

== ENCOUNTER 2017-05-01 00:34 | Emergency (ER) | payer MEDICAID ==
[2017-05-01 00:34] VITALS: BMI 26.8
[2017-05-01 00:53] VITALS: BP 139/75; PULSE 102; RESP 16; TEMP 98.4; O2SAT 99
--- NOTE | 2017-05-01 01:46 | ED PDOC ---
Lower Extremity Pain/Injury Time Seen by Provider: 05/01/17 00:44 Chief Complaint (Nursing): Med Refill Chief Complaint (Provider): leg pain History Per: Patient Additional Complaint(s): 47 yo male, PMH of DM and Gout, presents to ED with complaints of lower extremity pain and swelling. Pt requesting a hospital bed overnight and medication refills of allopurinol and indocin. Past Medical History Reviewed: Historical Data, Nursing Documentation, Vital Signs Vital Signs: Last Vital Signs Temp 98.4 F 05/01/17 00:50 Pulse 102 H 05/01/17 00:50 Resp 16 05/01/17 00:50 BP 139/75 05/01/17 00:50 Pulse Ox 99 05/01/17 00:50 - Medical History PMH: Anxiety, COPD, Depression, Diabetes (NIDDM), Emphysema, HTN Denies: Asthma, Chronic Kidney Disease - Surgical History Surgical History: Coronary Stent - Family History Family History: States: Unknown Family Hx - Living Arrangements Living Arrangements: Other - Immunization History Hx Tetanus Toxoid Vaccination: No Hx Influenza Vaccination: No Hx Pneumococcal Vaccination: No - Home Medications Home Medications: Ambulatory Orders Medication Instructions Recorded Allopurinol [Zyloprim] 100 mg PO DAILY 06/20/15 Omeprazole [Prilosec] 40 mg PO DAILY 06/20/15 Simvastatin [Zocor] 20 mg PO HS 06/20/15 Valsartan [Diovan] 160 mg PO DAILY 06/20/15 metFORMIN [glucOPHAGE] 500 mg PO BID 06/20/15 Indomethacin 25 mg PO Q6 #20 capsule 06/29/15 Ciprofloxacin HCl [Cipro] 500 mg PO BID #0 tablet 09/10/15 Docusate [Colace] 100 mg PO BID #0 cap 09/10/15 Metronidazole [Flagyl] 250 mg PO Q8H #0 tab 09/10/15 Albuterol HFA [Ventolin HFA 90 1 - 2 puff IH Q6 PRN #1 inhaler 09/21/15 mcg/actuation (8 g)] Bacitracin Ointment [Bacitracin] 1 applic TOP BID #1 tube 10/07/15 Albuterol HFA [Ventolin HFA 90 2 puff IH [id number] #1 unit 10/10/15 mcg/actuation (8 g)] Azithromycin [Zithromax] 250 mg PO DAILY #6 tab 10/10/15 Dicyclomine [Bentyl] 20 mg PO Q12 PRN #20 tab 11/14/15 Naproxen [Naprosyn] 500 mg PO BID PRN #30 tab 12/06/15 Naproxen [Naprosyn Tab] 375 mg PO Q8 PRN #21 tab 12/28/16 Acetaminophen 650 mg PO Q6 #30 capsule 12/30/16 Amoxicillin/Clavulanate [Augmentin 1 tab PO BID 14 Days tab 12/30/16 875 MG-125 MG] Ibuprofen [Motrin Tab] 800 mg PO Q8 PRN #20 tab 01/16/17 Tobramycin 0.3% [Tobrex 0.3% Ophth 1 drop OD 5XD #1 bottle 03/04/17 Soln] Polymyxin/Trimethoprim Sulfate 100 drop OD BID #1 bottle 03/06/17 [Polytrim Ophth Soln] Ibuprofen [Motrin Tab] 800 mg PO Q8 PRN #20 tab 04/04/17 Allopurinol [Zyloprim] 100 mg PO BID #28 tab 04/10/17 Indomethacin [Indocin] 50 mg PO TID #21 cap 04/10/17 Clotrimazole 1% Cream [Lotrimin 1%] 1 applic TP BID #1 tube 04/21/17 Naproxen [Naprosyn] 500 mg PO Q12 PRN #20 tablet 04/21/17 Allopurinol [Zyloprim] 100 mg PO BID #14 tab 04/23/17 Indomethacin [Indocin] 1 tab PO Q8 PRN #21 cap 04/23/17 - Allergies Allergies/Adverse Reactions: Allergies Allergy/AdvReac Type Severity Reaction Status Date / Time No Known Allergies Allergy Verified 04/29/17 03:01 Review of Systems ROS Statement: Except As Marked, All Systems Reviewed And Found Negative Musculoskeletal: Positive for: Leg Pain Physical Exam - Reviewed Nursing Documentation Reviewed: Yes Vital Signs Reviewed: Yes - Physical Exam Appears: Positive for: Well, Non-toxic, No Acute Distress Head Exam: Positive for: ATRAUMATIC, NORMAL INSPECTION, NORMOCEPHALIC Skin: Positive for: Normal Color, Warm, DRY Eye Exam: Positive for: EOMI, Normal appearance, PERRL ENT: Positive for: Normal ENT Inspection Neck: Positive for: Normal, Painless ROM Cardiovascular/Chest: Positive for: Regular Rate, Rhythm Respiratory: Positive for: CNT, Normal Breath Sounds Gastrointestinal/Abdominal: Positive for: Normal Exam, Bowel Sounds, Soft Back: Positive for: Normal Inspection Extremity: Positive for: Normal ROM Neurologic/Psych: Positive for: Alert, Oriented - ECG O2 Sat by Pulse Oximetry: 99 Disposition - Clinical Impression Clinical Impression: Medication refill - Patient ED Disposition Is Patient to be Admitted: No - Disposition Referrals: Nicolas Ryan MD [Primary Care Provider] - Disposition: Routine/Home Disposition Time: 01:45 Condition: STABLE - POA Present On Arrival: None
== END 2017-05-01 02:14 | disposition home or self-care (01) ==
LOC: H.ER 00:34
DX: E11.9 Type 2 diabetes mellitus without complications (principal); I10 Essential (primary) hypertension; Z76.0 Encounter for issue of repeat prescription; Z95.5 Presence of coronary angioplasty implant and graft; Z86.59 Personal history of other mental and behavioral disorders; J44.9 Chronic obstructive pulmonary disease, unspecified; Z79.84 Long term (current) use of oral hypoglycemic drugs

== ENCOUNTER 2017-05-03 22:20 | Emergency (ER) | payer MEDICAID ==
[2017-05-03 22:20] VITALS: BMI 26.8
--- NOTE | 2017-05-04 03:02 | ED PDOC ---
Lower Extremity Pain/Injury Time Seen by Provider: 05/04/17 02:32 Chief Complaint (Nursing): Lower Extremity Problem/Injury Chief Complaint (Provider): leg pain/swelling History Per: Patient History/Exam Limitations: no limitations Onset/Duration Of Symptoms: Days Current Symptoms Are (Timing): Still Present Additional History Per: Patient Additional Complaint(s): 47 y/o nondomiciled male presents to ED with chronic leg swelling x months. Patient states he is homeless and does a lot of walking, requesting a bed to rest his legs in for a little while. Denies fever, chest pain, shortness of breath, palpitations, calf tenderness, numbness/weakness lower extremities, recent travel. Past Medical History Reviewed: Historical Data, Nursing Documentation, Vital Signs Vital Signs: Last Vital Signs Temp 97.5 F L 05/03/17 22:24 Pulse 91 H 05/03/17 22:24 Resp 16 05/03/17 22:24 BP 127/70 05/03/17 22:24 Pulse Ox 100 05/03/17 22:24 - Medical History PMH: Anxiety, COPD, Depression, Diabetes (NIDDM), Emphysema, HTN Denies: Asthma, Chronic Kidney Disease - Surgical History Surgical History: Coronary Stent - Family History Family History: States: Unknown Family Hx - Immunization History Hx Tetanus Toxoid Vaccination: No Hx Influenza Vaccination: No Hx Pneumococcal Vaccination: No - Home Medications Home Medications: Ambulatory Orders Medication Instructions Recorded Allopurinol [Zyloprim] 100 mg PO DAILY 06/20/15 Omeprazole [Prilosec] 40 mg PO DAILY 06/20/15 Simvastatin [Zocor] 20 mg PO HS 06/20/15 Valsartan [Diovan] 160 mg PO DAILY 06/20/15 metFORMIN [glucOPHAGE] 500 mg PO BID 06/20/15 Indomethacin 25 mg PO Q6 #20 capsule 06/29/15 Ciprofloxacin HCl [Cipro] 500 mg PO BID #0 tablet 09/10/15 Docusate [Colace] 100 mg PO BID #0 cap 09/10/15 Metronidazole [Flagyl] 250 mg PO Q8H #0 tab 09/10/15 Albuterol HFA [Ventolin HFA 90 1 - 2 puff IH Q6 PRN #1 inhaler 09/21/15 mcg/actuation (8 g)] Bacitracin Ointment [Bacitracin] 1 applic TOP BID #1 tube 10/07/15 Albuterol HFA [Ventolin HFA 90 2 puff IH [id number] #1 unit 10/10/15 mcg/actuation (8 g)] Azithromycin [Zithromax] 250 mg PO DAILY #6 tab 10/10/15 Dicyclomine [Bentyl] 20 mg PO Q12 PRN #20 tab 11/14/15 Naproxen [Naprosyn] 500 mg PO BID PRN #30 tab 12/06/15 Naproxen [Naprosyn Tab] 375 mg PO Q8 PRN #21 tab 12/28/16 Acetaminophen 650 mg PO Q6 #30 capsule 12/30/16 Amoxicillin/Clavulanate [Augmentin 1 tab PO BID 14 Days tab 12/30/16 875 MG-125 MG] Ibuprofen [Motrin Tab] 800 mg PO Q8 PRN #20 tab 01/16/17 Tobramycin 0.3% [Tobrex 0.3% Ophth 1 drop OD 5XD #1 bottle 03/04/17 Soln] Polymyxin/Trimethoprim Sulfate 100 drop OD BID #1 bottle 03/06/17 [Polytrim Ophth Soln] Ibuprofen [Motrin Tab] 800 mg PO Q8 PRN #20 tab 04/04/17 Allopurinol [Zyloprim] 100 mg PO BID #28 tab 04/10/17 Indomethacin [Indocin] 50 mg PO TID #21 cap 04/10/17 Clotrimazole 1% Cream [Lotrimin 1%] 1 applic TP BID #1 tube 04/21/17 Naproxen [Naprosyn] 500 mg PO Q12 PRN #20 tablet 04/21/17 Allopurinol [Zyloprim] 100 mg PO BID #14 tab 04/23/17 Indomethacin [Indocin] 1 tab PO Q8 PRN #21 cap 04/23/17 Allopurinol [Zyloprim] 300 mg PO DAILY #10 tab 05/01/17 Indomethacin [Indocin] 50 mg PO BID #20 cap 05/01/17 - Allergies Allergies/Adverse Reactions: Allergies Allergy/AdvReac Type Severity Reaction Status Date / Time No Known Allergies Allergy Verified 05/03/17 22:24 Review of Systems ROS Statement: Except As Marked, All Systems Reviewed And Found Negative Musculoskeletal: Positive for: Leg Pain Physical Exam - Reviewed Nursing Documentation Reviewed: Yes Vital Signs Reviewed: Yes - Physical Exam Appears: Positive for: Well, Non-toxic, No Acute Distress Head Exam: Positive for: ATRAUMATIC, NORMAL INSPECTION, NORMOCEPHALIC Pulses-Dorsalis Pedis (L): 2+ Pulses-Dorsalis Pedis (R): 2+ Pulses-Post. Tibialis (L): 2+ Pulses-Post. Tibialis (R): 2+ Extremity: Positive for: Normal ROM, Swelling (bilateral). Negative for: Calf Tenderness Neurologic/Psych: Positive for: Alert, Oriented - ECG O2 Sat by Pulse Oximetry: 100 Disposition - Clinical Impression Clinical Impression: Leg edema - Patient ED Disposition Is Patient to be Admitted: No Counseled Patient/Family Regarding: Diagnosis, Need For Followup - Disposition Disposition: Routine/Home Disposition Time: 05:08 Condition: STABLE Instructions: Leg Edema (ED)
[2017-05-04 06:52] VITALS: BP 140/82; PULSE 83; RESP 17; TEMP 98.2; O2SAT 98
== END 2017-05-04 06:49 | disposition home or self-care (01) ==
LOC: H.ER 22:20
DX: R60.0 Localized edema (principal); Z59.0 Homelessness; E11.9 Type 2 diabetes mellitus without complications; Z79.84 Long term (current) use of oral hypoglycemic drugs; F32.9 Major depressive disorder, single episode, unspecified; F41.9 Anxiety disorder, unspecified; I10 Essential (primary) hypertension; J44.9 Chronic obstructive pulmonary disease, unspecified; Z95.5 Presence of coronary angioplasty implant and graft

== ENCOUNTER 2017-06-26 09:04 | Emergency (ER) | payer MEDICAID ==
[2017-06-26 09:04] VITALS: BMI 26.8
[2017-06-26 09:55] VITALS: BP 134/88; PULSE 88; RESP 20; TEMP 97; O2SAT 98
--- NOTE | 2017-06-26 10:32 | ED PDOC ---
Lower Extremity Pain/Injury Time Seen by Provider: 06/26/17 09:54 Chief Complaint (Nursing): Lower Extremity Problem/Injury Chief Complaint (Provider): lower extremity edema History Per: Patient History/Exam Limitations: no limitations Onset/Duration Of Symptoms: Waxing/Waning, Gradual Current Symptoms Are (Timing): Still Present Severity: Moderate Additional History Per: Prior Records Additional Complaint(s): 47yo male c.o ongoing b/l LE edema and redness to toes, denies SOB, syncope, orthopnea or urinary changes. States homeless, sleeps sitting up often on streets. Prior charts reviewed, multiple prior visits for same. Past Medical History Vital Signs: Last Vital Signs Temp 97 F L 06/26/17 09:52 Pulse 88 06/26/17 09:52 Resp 20 06/26/17 09:52 BP 134/88 06/26/17 09:52 Pulse Ox 98 06/26/17 09:52 - Medical History PMH: Anxiety, COPD, Depression, Diabetes (NIDDM), Emphysema, HTN Denies: Asthma, Chronic Kidney Disease - Surgical History Surgical History: Coronary Stent - Family History Family History: States: Unknown Family Hx - Immunization History Hx Tetanus Toxoid Vaccination: No Hx Influenza Vaccination: No Hx Pneumococcal Vaccination: No - Home Medications Home Medications: Ambulatory Orders Medication Instructions Recorded Allopurinol [Zyloprim] 100 mg PO DAILY 06/20/15 Omeprazole [Prilosec] 40 mg PO DAILY 06/20/15 Simvastatin [Zocor] 20 mg PO HS 06/20/15 Valsartan [Diovan] 160 mg PO DAILY 06/20/15 metFORMIN [glucOPHAGE] 500 mg PO BID 06/20/15 Indomethacin 25 mg PO Q6 #20 capsule 06/29/15 Ciprofloxacin HCl [Cipro] 500 mg PO BID #0 tablet 09/10/15 Docusate [Colace] 100 mg PO BID #0 cap 09/10/15 Metronidazole [Flagyl] 250 mg PO Q8H #0 tab 09/10/15 Albuterol HFA [Ventolin HFA 90 1 - 2 puff IH Q6 PRN #1 inhaler 09/21/15 mcg/actuation (8 g)] Bacitracin Ointment [Bacitracin] 1 applic TOP BID #1 tube 10/07/15 Albuterol HFA [Ventolin HFA 90 2 puff IH [id number] #1 unit 10/10/15 mcg/actuation (8 g)] Azithromycin [Zithromax] 250 mg PO DAILY #6 tab 10/10/15 Dicyclomine [Bentyl] 20 mg PO Q12 PRN #20 tab 11/14/15 Naproxen [Naprosyn] 500 mg PO BID PRN #30 tab 12/06/15 Naproxen [Naprosyn Tab] 375 mg PO Q8 PRN #21 tab 12/28/16 Acetaminophen 650 mg PO Q6 #30 capsule 12/30/16 Amoxicillin/Clavulanate [Augmentin 1 tab PO BID 14 Days tab 12/30/16 875 MG-125 MG] Ibuprofen [Motrin Tab] 800 mg PO Q8 PRN #20 tab 01/16/17 Tobramycin 0.3% [Tobrex 0.3% Ophth 1 drop OD 5XD #1 bottle 03/04/17 Soln] Polymyxin/Trimethoprim Sulfate 100 drop OD BID #1 bottle 03/06/17 [Polytrim Ophth Soln] Ibuprofen [Motrin Tab] 800 mg PO Q8 PRN #20 tab 04/04/17 Allopurinol [Zyloprim] 100 mg PO BID #28 tab 04/10/17 Indomethacin [Indocin] 50 mg PO TID #21 cap 04/10/17 Clotrimazole 1% Cream [Lotrimin 1%] 1 applic TP BID #1 tube 04/21/17 Naproxen [Naprosyn] 500 mg PO Q12 PRN #20 tablet 04/21/17 Allopurinol [Zyloprim] 100 mg PO BID #14 tab 04/23/17 Indomethacin [Indocin] 1 tab PO Q8 PRN #21 cap 04/23/17 Allopurinol [Zyloprim] 300 mg PO DAILY #10 tab 05/01/17 Indomethacin [Indocin] 50 mg PO BID #20 cap 05/01/17 Allopurinol [Zyloprim] 100 mg PO DAILY #15 tab 06/26/17 Bacitracin Ointment [Bacitracin] 30 gm TOP BID #1 tube 06/26/17 - Allergies Allergies/Adverse Reactions: Allergies Allergy/AdvReac Type Severity Reaction Status Date / Time No Known Allergies Allergy Verified 06/26/17 09:51 Review of Systems Constitutional: Negative for: Fever, Chills Cardiovascular: Negative for: Chest Pain, Palpitations Respiratory: Negative for: Cough, Shortness of Breath Gastrointestinal: Negative for: Abdominal Pain Musculoskeletal: Positive for: Leg Pain, Foot Pain. Negative for: Neck Pain, Shoulder Pain Skin: Negative for: Rash, Lesions Neurological: Negative for: Weakness, Altered Mental Status, Headache, Dizziness Psych: Negative for: Suicidal ideation Physical Exam - Reviewed Nursing Documentation Reviewed: Yes Vital Signs Reviewed: Yes - Physical Exam Appears: Positive for: Well, Non-toxic Head Exam: Positive for: ATRAUMATIC Cardiovascular/Chest: Negative for: Tachycardia Respiratory: Negative for: Respiratory Distress Gastrointestinal/Abdominal: Negative for: Tenderness Extremity: Positive for: Pedal Edema, Swelling, Other (trace erythema b/l toes) Neurologic/Psych: Positive for: Oriented, Gait (stable). Negative for: Motor/ Sensory Deficits - ECG O2 Sat by Pulse Oximetry: 98 Disposition - Clinical Impression Clinical Impression: Leg edema - Patient ED Disposition Is Patient to be Admitted: No - Disposition Referrals: Podiatry Clinic [Outside] Disposition: Routine/Home Disposition Time: 11:05 Condition: STABLE Additional Instructions: See podiatry clinic for further treatment. Return to ER for any worse or new symptoms. Prescriptions: Allopurinol [Zyloprim] 100 mg PO DAILY #15 tab Bacitracin Ointment [Bacitracin] 30 gm TOP BID #1 tube Instructions: Dependent Edema (DC) Forms: [employer] ([place])
== END 2017-06-26 11:29 | disposition home or self-care (01) ==
LOC: H.ER 09:04
DX: R60.0 Localized edema (principal); E11.9 Type 2 diabetes mellitus without complications

== ENCOUNTER 2017-08-09 06:03 | Emergency (ER) | payer MEDICAID ==
[2017-08-09 06:03] VITALS: BMI 26.8
--- NOTE | 2017-08-09 08:00 | ED PDOC ---
Lower Extremity Pain/Injury Time Seen by Provider: 08/09/17 07:00 Chief Complaint (Nursing): Lower Extremity Problem/Injury Chief Complaint (Provider): Foot Swelling History Per: Patient History/Exam Limitations: no limitations Onset/Duration Of Symptoms: Days (x 1) Current Symptoms Are (Timing): Still Present Additional Complaint(s): Chilango is a 47 y/o male with a history of gout who presents to the ED complaining of swollen feet for the past day. Patient states he has been taking his gout medications but his feet are still swollen. He has multiple visits to this ED for foot pain, last visit 06/26. Denies shortness of breath, chest pain, or fever. PMD: Gonzalo Past Medical History Reviewed: Historical Data, Nursing Documentation, Vital Signs Vital Signs: Last Vital Signs Temp 97.9 F 08/09/17 06:21 Pulse 81 08/09/17 06:21 Resp 16 08/09/17 06:21 BP 148/93 H 08/09/17 06:21 Pulse Ox 99 08/09/17 06:21 - Medical History PMH: Anxiety, COPD, Depression, Diabetes (NIDDM), Emphysema, HTN Denies: Asthma, Chronic Kidney Disease - Surgical History Surgical History: Coronary Stent Other surgeries: left shoulder surgery - Family History Family History: States: Unknown Family Hx - Social History Current smoker - smoking cessation education provided: No Alcohol: None Drugs: Denies - Immunization History Hx Tetanus Toxoid Vaccination: No Hx Influenza Vaccination: No Hx Pneumococcal Vaccination: No - Home Medications Home Medications: Ambulatory Orders Medication Instructions Recorded Allopurinol [Zyloprim] 100 mg PO DAILY 06/20/15 Omeprazole [Prilosec] 40 mg PO DAILY 06/20/15 Simvastatin [Zocor] 20 mg PO HS 06/20/15 Valsartan [Diovan] 160 mg PO DAILY 06/20/15 metFORMIN [glucOPHAGE] 500 mg PO BID 06/20/15 Indomethacin 25 mg PO Q6 #20 capsule 06/29/15 Ciprofloxacin HCl [Cipro] 500 mg PO BID #0 tablet 09/10/15 Docusate [Colace] 100 mg PO BID #0 cap 09/10/15 Metronidazole [Flagyl] 250 mg PO Q8H #0 tab 09/10/15 Albuterol HFA [Ventolin HFA 90 1 - 2 puff IH Q6 PRN #1 inhaler 09/21/15 mcg/actuation (8 g)] Bacitracin Ointment [Bacitracin] 1 applic TOP BID #1 tube 10/07/15 Albuterol HFA [Ventolin HFA 90 2 puff IH [id number] #1 unit 10/10/15 mcg/actuation (8 g)] Azithromycin [Zithromax] 250 mg PO DAILY #6 tab 10/10/15 Dicyclomine [Bentyl] 20 mg PO Q12 PRN #20 tab 11/14/15 Naproxen [Naprosyn] 500 mg PO BID PRN #30 tab 12/06/15 Naproxen [Naprosyn Tab] 375 mg PO Q8 PRN #21 tab 12/28/16 Acetaminophen 650 mg PO Q6 #30 capsule 12/30/16 Amoxicillin/Clavulanate [Augmentin 1 tab PO BID 14 Days tab 12/30/16 875 MG-125 MG] Ibuprofen [Motrin Tab] 800 mg PO Q8 PRN #20 tab 01/16/17 Tobramycin 0.3% [Tobrex 0.3% Ophth 1 drop OD 5XD #1 bottle 03/04/17 Soln] Polymyxin/Trimethoprim Sulfate 100 drop OD BID #1 bottle 03/06/17 [Polytrim Ophth Soln] Ibuprofen [Motrin Tab] 800 mg PO Q8 PRN #20 tab 04/04/17 Allopurinol [Zyloprim] 100 mg PO BID #28 tab 04/10/17 Indomethacin [Indocin] 50 mg PO TID #21 cap 04/10/17 Clotrimazole 1% Cream [Lotrimin 1%] 1 applic TP BID #1 tube 04/21/17 Naproxen [Naprosyn] 500 mg PO Q12 PRN #20 tablet 04/21/17 Allopurinol [Zyloprim] 100 mg PO BID #14 tab 04/23/17 Indomethacin [Indocin] 1 tab PO Q8 PRN #21 cap 04/23/17 Allopurinol [Zyloprim] 300 mg PO DAILY #10 tab 05/01/17 Indomethacin [Indocin] 50 mg PO BID #20 cap 05/01/17 Allopurinol [Zyloprim] 100 mg PO DAILY #15 tab 06/26/17 Bacitracin Ointment [Bacitracin] 30 gm TOP BID #1 tube 06/26/17 Allopurinol [Zyloprim] 100 mg PO DAILY #10 tab 08/09/17 Indomethacin [Indocin] 50 mg PO TID PRN #9 cap 08/09/17 - Allergies Allergies/Adverse Reactions: Allergies Allergy/AdvReac Type Severity Reaction Status Date / Time No Known Allergies Allergy Verified 08/09/17 06:21 Review of Systems ROS Statement: Except As Marked, All Systems Reviewed And Found Negative Constitutional: Negative for: Fever Cardiovascular: Negative for: Chest Pain Respiratory: Negative for: Shortness of Breath Musculoskeletal: Positive for: Foot Pain (swelling) Physical Exam - Reviewed Nursing Documentation Reviewed: Yes Vital Signs Reviewed: Yes - Physical Exam Appears: Positive for: Well, Non-toxic, No Acute Distress Cardiovascular/Chest: Positive for: Regular Rate, Rhythm. Negative for: Murmur Respiratory: Positive for: Normal Breath Sounds. Negative for: Wheezing, Respiratory Distress Extremity: Positive for: Swelling (feet, left more swollen than right. L great toe particularly swollen tender and erythematous. 2+ DP pulse. neurovascular intact.) - Laboratory Results Result Diagrams: 08/09/17 11:23 - ECG O2 Sat by Pulse Oximetry: 99 (RA) Medical Decision Making Medical Decision Making: Time: 7:49 Initial Impression: Bilateral Foot Swelling rule out gout Initial Plan: --Accucheck Time: 10:30 --Podiatry evaluated patient. Requesting CBC, XR Foot 3 Views Bilateral, and Urinalysis. Time: 13:20 XR FOOT B/L FINDINGS: BONES: There is no acute displaced fracture or bone destruction. Bone alignment is normal. Status post reduction and internal fixation of right 5th metatarsal base fracture. JOINTS: Again seen is moderate bilateral hallux valgus with severe degenerative osteoarthrosis in the 1st MTP joint space SOFT TISSUES: There is mild periarticular soft tissue swelling at the 1st MTP joints. OTHER FINDINGS: None. IMPRESSION: No acute fracture or dislocation. Redemonstration of moderate hallux valgus with severe degenerative osteoarthrosis in bilateral 1st MTP joints and mild periarticular soft tissue swelling. Time: 13:55 --Uric Acid Time: 15:27 --Patient was seen by podiatry who gave patient an injection and agrees with clinical impression of gout attack. Clinical Impression: Gout Attack follow up with outpatient podiatry Scribe Attestation: Documented by Enrico Mullen, acting as a scribe for Blaise Dickson MD Provider Scribe Attestation: All medical record entries made by the Scribe were at my direction and personally dictated by me. I have reviewed the chart and agree that the record accurately reflects my personal performance of the history, physical exam, medical decision making, and the department course for this patient. I have also personally directed, reviewed, and agree with the discharge instructions and disposition. Disposition - Clinical Impression Clinical Impression: Gout attack - Patient ED Disposition Is Patient to be Admitted: No Counseled Patient/Family Regarding: Studies Performed, Diagnosis, Need For Followup, Rx Given - Disposition Disposition: Routine/Home Disposition Time: 12:29 Condition: IMPROVED Additional Instructions: follow up with your primary podiatry this week return to the ED with any worsening or concerning symptoms Prescriptions: Allopurinol [Zyloprim] 100 mg PO DAILY #10 tab Indomethacin [Indocin] 50 mg PO TID PRN #9 cap PRN Reason: Pain, Moderate (4-7) Instructions: Gout (DC) Forms: [employer] (Kazakh)
[2017-08-09 11:35] LABS: BASO % 0.4 % (0.0-2.0); EOS # 0.1 K/uL (0.0-0.7); EOS % 1.5 % (0.0-4.0); HEMOGLOBIN 13.1 g/dL (12.0-18.0); LYMPH # 1.2 K/uL (1.0-4.3); LYMPH % 25.4 % (20.0-40.0); MEAN CELL VOLUME 86.6 fl (80.0-94.0); MEAN CORPUSCULAR HEMOGLOBIN 28.9 pg (27.0-31.0); MEAN CORPUSCULAR HGB CONC 33.4 g/dL (33.0-37.0); MEAN PLATELET VOLUME 8.2 fl (7.2-11.7); MONO # 0.5 K/uL (0.0-0.8); MONO % 10.3 % (0.0-10.0); NEUT # 2.9 K/uL (1.8-7.0); NEUT % 62.4 % (50.0-75.0); NRBC % 0.1 % (0.0-0.0); RBC 4.52 Mil/uL (4.40-5.90); RED CELL DISTRIBUTION WIDTH 13.5 % (11.5-14.5); WHITE BLOOD COUNT 4.7 K/uL (4.8-10.8)
--- NOTE | 2017-08-09 13:22 | RAD ---
PROCEDURE: Bilateral Feet Radiographs. HISTORY: Foot swelling COMPARISON: 04/04/2017. FINDINGS: BONES: There is no acute displaced fracture or bone destruction. Bone alignment is normal. Status post reduction and internal fixation of right 5th metatarsal base fracture. JOINTS: Again seen is moderate bilateral hallux valgus with severe degenerative osteoarthrosis in the 1st MTP joint space SOFT TISSUES: There is mild periarticular soft tissue swelling at the 1st MTP joints. OTHER FINDINGS: None. IMPRESSION: No acute fracture or dislocation. Redemonstration of moderate hallux valgus with severe degenerative osteoarthrosis in bilateral 1st MTP joints and mild periarticular soft tissue swelling.
[2017-08-09] MEDS ORDERED: Povidone Iodine Topical 10% Sol ONE (15:16)
[2017-08-09 16:47] VITALS: BP 120/70; PULSE 79; RESP 19; TEMP 98.8
--- NOTE | 2017-08-09 17:47 | CP.PCM.CON ---
History of Present Illness - History of Present Illness History of Present Illness: 47 year old male with PMHx IDDM, gout, seen in ED complaining of acutely painful left first MTPJ. Patient states that the pain started suddenly and is excruciating to touch rating it 9/10. Patient states that he has had multiple episodes of this same pain in the past and was diagnosed with gout by a local channel rougher who's name he could not recall. He states that this same channel rougher gave him Allopurinol but he has not been taking them regularly. Patient denies any recent trauma to the area. He denies any further pedal complaints at this time. Denies any recent N/V/F/C/CP/SOB/D/posterior calf pain when squeezed. Review of Systems - Review of Systems Review of Systems: ROS as per HPI Past Patient History - Infectious Disease Hx of Infectious Diseases: None - Tetanus Immunizations Tetanus Immunization: Unknown - Past Medical History & Family History Past Medical History?: Yes - Past Social History Alcohol: None Drugs: Denies - CARDIAC Hx Hypertension: Yes - PULMONARY Hx Asthma: No Hx Chronic Obstructive Pulmonary Disease (COPD): Yes Hx Emphysema: Yes - NEUROLOGICAL Hx Neurological Disorder: No - HEENT Hx HEENT Problems: No - RENAL Hx Chronic Kidney Disease: No - ENDOCRINE/METABOLIC Hx Endocrine Disorders: Yes Hx Diabetes Mellitus Type 2: Yes (not on med) - HEMATOLOGICAL/ONCOLOGICAL Hx Blood Disorders: No - INTEGUMENTARY Hx Dermatological Problems: No - MUSCULOSKELETAL/RHEUMATOLOGICAL Hx Musculoskeletal Disorders: Yes Hx Falls: No Hx Gout: Yes - GASTROINTESTINAL Hx Gastrointestinal Disorders: No - GENITOURINARY/GYNECOLOGICAL Hx Genitourinary Disorders: No - PSYCHIATRIC Hx Anxiety: Yes Hx Depression: Yes - SURGICAL HISTORY Hx Coronary Stent: Yes - ANESTHESIA Hx Anesthesia: Yes Hx Anesthesia Reactions: Yes (vomiting) Meds Home Medications: Home Medication List Medication Instructions Recorded Confirmed Type Allopurinol [Zyloprim] 100 mg PO DAILY #10 tab 08/09/17 Rx Indomethacin [Indocin] 50 mg PO TID PRN #9 cap 08/09/17 Rx Allergies/Adverse Reactions: Allergies Allergy/AdvReac Type Severity Reaction Status Date / Time No Known Allergies Allergy Verified 08/09/17 06:21 Physical Exam - Constitutional Appears: Well, Non-toxic, No Acute Distress - Extremities Exam Additional comments: LE focused exam: Vasc: DP/PT pulses palpable 1/4 b/l secondary to 1+ pitting edema b/l. CFT < 3 seconds to all digits b/l. Skin temperature warm to warm from proximal to distal. Neuro: Epicritic and protective sensation grossly intact b/l Derm: Increased erythema noted to left first MTPJ level. Mild xerosis noted b/ l. Otherwise no open lesions, wounds, maceration, abnormal pigmentation or abnormal growths noted b/l MSK: Severe POP to left first MTPJ level. Pain at left first MTPJ with AROM and PROM of hallux. Bunion deformities noted to b/l feet. Otherwise no gross deformities noted - Neurological Exam Neurological exam: Alert, Oriented x3 - Psychiatric Exam Psychiatric exam: Normal Affect, Normal Mood Results - Vital Signs Recent Vital Signs: Last Vital Signs Temp 98.8 F 08/09/17 16:47 Pulse 79 08/09/17 16:47 Resp 19 08/09/17 16:47 BP 120/70 08/09/17 16:47 Pulse Ox 100 08/09/17 16:47 - Labs Result Diagrams: 08/09/17 11:23 Labs: Laboratory Results - last 24 hr 08/09/17 08/09/17 08/09/17 07:45 11:23 14:05 WBC 4.7 L RBC 4.52 Hgb 13.1 Hct 39.2 MCV 86.6 D MCH 28.9 MCHC 33.4 RDW 13.5 Plt Count 226 MPV 8.2 Neut % (Auto) 62.4 Lymph % (Auto) 25.4 [place] % (Auto) 10.3 H Eos % (Auto) 1.5 Baso % (Auto) 0.4 Neut # (Auto) 2.9 Lymph # (Auto) 1.2 [place] # (Auto) 0.5 Eos # (Auto) 0.1 Baso # (Auto) 0.0 POC Glucose (mg/dL) 93 Uric Acid 6.9 Assessment & Plan - Assessment and Plan (Free Text) Assessment: 47 year old male seen in ED for pain to left first MTPJ most likely secondary to acute gouty flareup Plan: Patient seen and evaluated in ED Charts, labs vitals reviewed Plan discussed with attending Dr. Galicia Afebrile, absent leukocytosis, Uric Acid levels WNL L foot xrays reviewed: No signs of fracture or other trauma noted to first MTPJ. No evidence of MTPJ degeneration secondary previous gouty attacks. No Edin's sign Patient's L first MTPJ injected with 1 cc 1:1 1% lidocaine plain, dexamethasone without incident in an aseptic manner Injection site dressed with a bandaid ED staff to give patient Rx for Allopurinol and Indomethacin Patient instructed to follow up with his regular channel rougher as soon as possible - Date & Time Date: 08/09/17 Time: 17:54
[2017-08-10 21:12] VITALS: O2SAT 99
== END 2017-08-09 16:47 | disposition home or self-care (01) ==
LOC: H.ER 06:03
DX: M10.9 Gout, unspecified (principal); E11.9 Type 2 diabetes mellitus without complications; F32.9 Major depressive disorder, single episode, unspecified; F41.9 Anxiety disorder, unspecified; I10 Essential (primary) hypertension; J44.9 Chronic obstructive pulmonary disease, unspecified; Z79.4 Long term (current) use of insulin; Z95.5 Presence of coronary angioplasty implant and graft; M20.11 Hallux valgus (acquired), right foot; M19.072 Primary osteoarthritis, left ankle and foot

== ENCOUNTER 2017-08-11 10:23 | Observation (INO) | payer MEDICAID ==
[2017-08-11 10:24] VITALS: BMI 26.8
[2017-08-11] MEDS ORDERED: Sodium Chloride 0.9% 1,000 ML IV STA (10:46)
--- NOTE | 2017-08-11 10:49 | ED PDOC ---
Syncope/Near Syncope/Dizziness Time Seen by Provider: 08/11/17 10:42 Chief Complaint (Nursing): GI Problem History Per: Patient Onset/Duration Of Symptoms: Days (2) Current Symptoms Are (Timing): Still Present Associated Symptoms Preceding Syncopal Episode: No Predromal Symptoms (Sudden Onset) Fall Associated With With Symptoms: No Severity: Mild Pain Scale Rating Of: 0 Additional Complaint(s): Dizziness assoc with nausea x 2 days. Denies abd pain No diarrhea. Denies chest pain. palpitations or headache. No focal peripheral weakness. Past Medical History Vital Signs: Last Vital Signs Temp 97.9 F 08/11/17 10:33 Pulse 94 H 08/11/17 10:33 Resp 22 08/11/17 10:33 BP 152/93 H 08/11/17 10:33 Pulse Ox 96 08/11/17 10:33 - Medical History PMH: Anxiety, COPD, Depression, Diabetes (NIDDM), Emphysema, HTN Denies: Asthma, Chronic Kidney Disease - Surgical History Surgical History: Coronary Stent - Family History Family History: States: Unknown Family Hx - Immunization History Hx Tetanus Toxoid Vaccination: No Hx Influenza Vaccination: No Hx Pneumococcal Vaccination: No - Home Medications Home Medications: Ambulatory Orders Medication Instructions Recorded Allopurinol [Zyloprim] 100 mg PO DAILY 06/20/15 Omeprazole [Prilosec] 40 mg PO DAILY 06/20/15 Simvastatin [Zocor] 20 mg PO HS 06/20/15 Valsartan [Diovan] 160 mg PO DAILY 06/20/15 metFORMIN [glucOPHAGE] 500 mg PO BID 06/20/15 Indomethacin 25 mg PO Q6 #20 capsule 06/29/15 Ciprofloxacin HCl [Cipro] 500 mg PO BID #0 tablet 09/10/15 Docusate [Colace] 100 mg PO BID #0 cap 09/10/15 Metronidazole [Flagyl] 250 mg PO Q8H #0 tab 09/10/15 Albuterol HFA [Ventolin HFA 90 1 - 2 puff IH Q6 PRN #1 inhaler 09/21/15 mcg/actuation (8 g)] Bacitracin Ointment [Bacitracin] 1 applic TOP BID #1 tube 10/07/15 Albuterol HFA [Ventolin HFA 90 2 puff IH [id number] #1 unit 10/10/15 mcg/actuation (8 g)] Azithromycin [Zithromax] 250 mg PO DAILY #6 tab 10/10/15 Dicyclomine [Bentyl] 20 mg PO Q12 PRN #20 tab 11/14/15 Naproxen [Naprosyn] 500 mg PO BID PRN #30 tab 12/06/15 Naproxen [Naprosyn Tab] 375 mg PO Q8 PRN #21 tab 12/28/16 Acetaminophen 650 mg PO Q6 #30 capsule 12/30/16 Amoxicillin/Clavulanate [Augmentin 1 tab PO BID 14 Days tab 12/30/16 875 MG-125 MG] Ibuprofen [Motrin Tab] 800 mg PO Q8 PRN #20 tab 01/16/17 Tobramycin 0.3% [Tobrex 0.3% Ophth 1 drop OD 5XD #1 bottle 03/04/17 Soln] Polymyxin/Trimethoprim Sulfate 100 drop OD BID #1 bottle 03/06/17 [Polytrim Ophth Soln] Ibuprofen [Motrin Tab] 800 mg PO Q8 PRN #20 tab 04/04/17 Allopurinol [Zyloprim] 100 mg PO BID #28 tab 04/10/17 Indomethacin [Indocin] 50 mg PO TID #21 cap 04/10/17 Clotrimazole 1% Cream [Lotrimin 1%] 1 applic TP BID #1 tube 04/21/17 Naproxen [Naprosyn] 500 mg PO Q12 PRN #20 tablet 04/21/17 Allopurinol [Zyloprim] 100 mg PO BID #14 tab 04/23/17 Indomethacin [Indocin] 1 tab PO Q8 PRN #21 cap 04/23/17 Allopurinol [Zyloprim] 300 mg PO DAILY #10 tab 05/01/17 Indomethacin [Indocin] 50 mg PO BID #20 cap 05/01/17 Allopurinol [Zyloprim] 100 mg PO DAILY #15 tab 06/26/17 Bacitracin Ointment [Bacitracin] 30 gm TOP BID #1 tube 06/26/17 Allopurinol [Zyloprim] 100 mg PO DAILY #10 tab 08/09/17 Indomethacin [Indocin] 50 mg PO TID PRN #9 cap 08/09/17 Meclizine [Meclizine*] 25 mg PO Q8 #15 tab 08/11/17 - Allergies Allergies/Adverse Reactions: Allergies Allergy/AdvReac Type Severity Reaction Status Date / Time No Known Allergies Allergy Verified 08/11/17 10:40 Review of Systems ROS Statement: Except As Marked, All Systems Reviewed And Found Negative Gastrointestinal: Positive for: Nausea Neurological: Positive for: Dizziness Physical Exam - Reviewed Nursing Documentation Reviewed: Yes Vital Signs Reviewed: Yes - Physical Exam Appears: Positive for: Non-toxic, No Acute Distress Head Exam: Positive for: ATRAUMATIC, NORMAL INSPECTION, NORMOCEPHALIC Skin: Positive for: Normal Color, Warm, DRY Eye Exam: Positive for: EOMI, Normal appearance, PERRL ENT: Positive for: Normal ENT Inspection Neck: Positive for: Normal, Painless ROM Cardiovascular/Chest: Positive for: Regular Rate, Rhythm Respiratory: Positive for: CNT, Normal Breath Sounds Gastrointestinal/Abdominal: Positive for: Normal Exam, Soft Back: Positive for: Normal Inspection Extremity: Positive for: Normal ROM Neurologic/Psych: Positive for: Alert, Oriented - Laboratory Results Result Diagrams: 08/11/17 12:20 08/11/17 12:20 - ECG O2 Sat by Pulse Oximetry: 96 - Progress Re-evaluation Time: 15:30 Condition: Improved (Dizziness improved. Tolerated PO) Disposition - Clinical Impression Clinical Impression: Dizziness - Patient ED Disposition Is Patient to be Admitted: No Counseled Patient/Family Regarding: Studies Performed, Diagnosis, Need For Followup, Rx Given - Disposition Referrals: Milton Sánchez MD [Family Provider] - Disposition: Routine/Home Disposition Time: 15:32 Condition: FAIR Prescriptions: Meclizine [Meclizine*] 25 mg PO Q8 #15 tab Instructions: Vertigo (a Type of Dizziness) Forms: [facility] (Persian)
[2017-08-11 12:32] LABS: BASO % 0.3 % (0.0-2.0); EOS # 0.1 K/uL (0.0-0.7); HEMOGLOBIN 13.5 g/dL (12.0-18.0); LYMPH # 0.4 K/uL (1.0-4.3); LYMPH % 5.8 % (20.0-40.0); MEAN CELL VOLUME 87.8 fl (80.0-94.0); MEAN CORPUSCULAR HEMOGLOBIN 28.5 pg (27.0-31.0); MEAN CORPUSCULAR HGB CONC 32.4 g/dL (33.0-37.0); MEAN PLATELET VOLUME 8.1 fl (7.2-11.7); MONO # 0.2 K/uL (0.0-0.8); MONO % 3.3 % (0.0-10.0); NEUT % 89.6 % (50.0-75.0); PLATELET COUNT 197 K/uL (130-400); RBC 4.74 Mil/uL (4.40-5.90); RED CELL DISTRIBUTION WIDTH 13.6 % (11.5-14.5); WHITE BLOOD COUNT 6.7 K/uL (4.8-10.8)
[2017-08-11 12:37] LABS: ALB/GLOB RATIO 1.1 (1.0-2.1); ALBUMIN 3.8 g/dL (3.5-5.0); ALT/SGPT 45 U/L (21-72); AST/SGOT 38 U/L (17-59); BLOOD UREA NITROGEN 24 mg/dl (9-20); CALCIUM 8.9 mg/dL (8.4-10.2); GFR AFRICAN-AMERICAN > 60; GFR NON-AFRICAN AMERICAN > 60
[2017-08-11 14:07] LABS: BANDS 1 % (0-2); EOSINOPHIL 1 % (0-7); LYMPHOCYTE 7 % (20-50); MONOCYTE 2 % (0-10); NEUTROPHIL 89 % (42-75); PLATELET ESTIMATE NORMAL (NORMAL); TOTAL CELLS COUNTED 100
[2017-08-11] MEDS: Sodium Chloride 0.9% 1,000 ML IV SCH (19:04)
[2017-08-12 05:05] VITALS: RESP 18
[2017-08-12] MEDS: Sodium Chloride 0.9% 1,000 ML IV SCH (06:30)
--- NOTE | 2017-08-12 06:47 | CP.PCM.HP ---
History of Present Illness - History of Present Illness History of Present Illness: pt admitted for dizziness w/ episode of n/v no further dizziness, n/v at present but c/o mild headqache. bp elevated on arrival wnl at present. nihss 0 pending neuro cnsult Present on Admission - Present on Admission Any Indicators Present on Admission: No Review of Systems - Gastrointestinal Gastrointestinal: As Per HPI, Nausea, Vomiting - Neurological Neurological: As Per HPI, Dizziness, Headaches Past Patient History - Infectious Disease Hx of Infectious Diseases: None - Tetanus Immunizations Tetanus Immunization: Unknown - Past Medical History & Family History Past Medical History?: Yes - Past Social History Smoking Status: Never Smoked - CARDIAC Hx Cardiac Disorders: Yes Hx Hypertension: Yes - PULMONARY Hx Respiratory Disorders: Yes Hx Asthma: No Hx Chronic Obstructive Pulmonary Disease (COPD): Yes Hx Emphysema: Yes - NEUROLOGICAL Hx Neurological Disorder: No - HEENT Hx HEENT Problems: No - RENAL Hx Chronic Kidney Disease: No - ENDOCRINE/METABOLIC Hx Endocrine Disorders: Yes Hx Diabetes Mellitus Type 2: Yes - HEMATOLOGICAL/ONCOLOGICAL Hx Blood Disorders: No Hx AIDS: No Hx Human Immunodeficiency Virus (HIV): No - INTEGUMENTARY Hx Dermatological Problems: No - MUSCULOSKELETAL/RHEUMATOLOGICAL Hx Musculoskeletal Disorders: No Hx Falls: No - GASTROINTESTINAL Hx Gastrointestinal Disorders: No - GENITOURINARY/GYNECOLOGICAL Hx Genitourinary Disorders: No - PSYCHIATRIC Hx Psychophysiologic Disorder: No Hx Substance Use: No - SURGICAL HISTORY Hx Surgeries: Yes Hx Coronary Stent: Yes Other/Comment: Shoulder surgery - ANESTHESIA Hx Anesthesia: Yes Hx Anesthesia Reactions: Yes (vomiting) Meds Allergies/Adverse Reactions: Allergies Allergy/AdvReac Type Severity Reaction Status Date / Time No Known Allergies Allergy Verified 08/11/17 10:40 Physical Exam - Constitutional Appears: Well, Non-toxic, No Acute Distress - Head Exam Head Exam: ATRAUMATIC, NORMAL INSPECTION, NORMOCEPHALIC - Eye Exam Eye Exam: EOMI, Normal appearance, PERRL Pupil Exam: NORMAL ACCOMODATION, PERRL - ENT Exam ENT Exam: Mucous Membranes Moist, Normal Exam - Neck Exam Neck exam: Positive for: Normal Inspection - Respiratory Exam Respiratory Exam: Clear to Auscultation Bilateral, NORMAL BREATHING PATTERN - Cardiovascular Exam Cardiovascular Exam: REGULAR RHYTHM, RRR, +S1, +S2 - GI/Abdominal Exam GI & Abdominal Exam: Normal Bowel Sounds, Soft. absent: Tenderness - Extremities Exam Extremities exam: Positive for: full ROM, normal capillary refill, normal inspection, pedal pulses present - Back Exam Back exam: NORMAL INSPECTION - Neurological Exam Neurological exam: Alert, CN II-XII Intact, Normal Gait, Oriented x3, Reflexes Normal - Psychiatric Exam Psychiatric exam: Normal Affect, Normal Mood - Skin Skin Exam: Dry, Intact, Normal Color, Warm Results - Vital Signs Recent Vital Signs: Last Vital Signs Temp 98.1 F 08/12/17 05:04 Pulse 79 08/12/17 05:04 Resp 18 08/12/17 05:04 BP 108/62 08/12/17 05:04 Pulse Ox 98 08/12/17 05:04 - Labs Result Diagrams: 08/11/17 12:20 08/11/17 12:20 Labs: Laboratory Results - last 24 hr 08/11/17 08/11/17 08/11/17 10:51 12:20 12:20 WBC 6.7 RBC 4.74 Hgb 13.5 Hct 41.6 MCV 87.8 MCH 28.5 MCHC 32.4 L RDW 13.6 Plt Count 197 MPV 8.1 Neut % (Auto) 89.6 H Lymph % (Auto) 5.8 L [place] % (Auto) 3.3 Eos % (Auto) 1.0 Baso % (Auto) 0.3 Neut # (Auto) 6.0 Lymph # (Auto) 0.4 L [place] # (Auto) 0.2 Eos # (Auto) 0.1 Baso # (Auto) 0.0 Neutrophils % (Manual) 89 H Band Neutrophils % 1 Lymphocytes % (Manual) 7 L Monocytes % (Manual) 2 Eosinophils % (Manual) 1 Platelet Estimate Normal RBC Morphology Normal Sodium 142 Potassium 4.5 Chloride 103 Carbon Dioxide 27 Anion Gap 17 BUN 24 H Creatinine 1.1 Est GFR ( Amer) > 60 Est GFR (Non-Af Amer) > 60 POC Glucose (mg/dL) 73 Random Glucose 105 Calcium 8.9 Total Bilirubin 0.4 AST 38 ALT 45 Alkaline Phosphatase 75 Total Protein 7.4 Albumin 3.8 Globulin 3.6 Albumin/Globulin Ratio 1.1 08/11/17 08/11/17 08/12/17 18:55 22:52 05:32 WBC RBC Hgb Hct MCV MCH MCHC RDW Plt Count MPV Neut % (Auto) Lymph % (Auto) [place] % (Auto) Eos % (Auto) Baso % (Auto) Neut # (Auto) Lymph # (Auto) [place] # (Auto) Eos # (Auto) Baso # (Auto) Neutrophils % (Manual) Band Neutrophils % Lymphocytes % (Manual) Monocytes % (Manual) Eosinophils % (Manual) Platelet Estimate RBC Morphology Sodium Potassium Chloride Carbon Dioxide Anion Gap BUN Creatinine Est GFR ( Amer) Est GFR (Non-Af Amer) POC Glucose (mg/dL) 99 100 98 Random Glucose Calcium Total Bilirubin AST ALT Alkaline Phosphatase Total Protein Albumin Globulin Albumin/Globulin Ratio Assessment & Plan (1) Headache Assessment and Plan: tyelnol prn ct head neuro Status: Acute (2) DVT prophylaxis Assessment and Plan: scd nad ae hose ambulation Status: Acute (3) Dizziness Assessment and Plan: meclizine/valium ct head neuro ivf (bun noted ot be 24) Status: Acute Decision To Admit - Pt Status Changed To: Hospital Disposition Of: Observation - . Bed Request Type: Telemetry Admitting Physician: Jose Hidalgo
[2017-08-12 07:06] LABS: BASO % 0.3 % (0.0-2.0); EOS % 0.8 % (0.0-4.0); HEMOGLOBIN 11.9 g/dL (12.0-18.0); LYMPH # 0.8 K/uL (1.0-4.3); LYMPH % 22.5 % (20.0-40.0); MEAN CELL VOLUME 87.7 fl (80.0-94.0); MEAN CORPUSCULAR HEMOGLOBIN 28.6 pg (27.0-31.0); MEAN CORPUSCULAR HGB CONC 32.6 g/dL (33.0-37.0); MEAN PLATELET VOLUME 8.3 fl (7.2-11.7); MONO # 0.3 K/uL (0.0-0.8); MONO % 9.2 % (0.0-10.0); NEUT # 2.4 K/uL (1.8-7.0); NEUT % 67.2 % (50.0-75.0); RBC 4.17 Mil/uL (4.40-5.90); RED CELL DISTRIBUTION WIDTH 13.4 % (11.5-14.5); WHITE BLOOD COUNT 3.6 K/uL (4.8-10.8)
[2017-08-12 07:21] LABS: ALBUMIN 3.1 g/dL (3.5-5.0); ALT/SGPT 42 U/L (21-72); AST/SGOT 23 U/L (17-59); BLOOD UREA NITROGEN 17 mg/dl (9-20); GFR AFRICAN-AMERICAN > 60; GFR NON-AFRICAN AMERICAN > 60; HDL CHOLESTEROL 34 MG/DL (30-70)
[2017-08-12 07:26] LABS: LDL CHOLESTEROL 53 mg/dL (0-129)
[2017-08-12 08:33] VITALS: O2SAT 99
[2017-08-12] MEDS ORDERED: Bacitracin OINT 15GM TOP SCH (09:00)
--- NOTE | 2017-08-12 11:32 | CARD ---
APPROVED REPORT EKG Measurement Heart [id number] <Conclusion> Normal sinus rhythm Minimal voltage criteria for LVH, may be normal variant Borderline ECG
--- NOTE | 2017-08-12 12:37 | CP.PCM.CON ---
History of Present Illness - History of Present Illness History of Present Illness: 47 yr old with pmh of DM, and gout, who had severe dizziness with nause and vomiting starting yesterday at 5 am. Patient denies head trauma, mva, recent change in medications, or other sick contacts. Vomiting was quite profuse, and stopped yesterday evening. He was started on ciprofloxacin. Darren also experienced acute dizziness with his nausea, that is stil present. Denies aphasia, dysarthria or weakness. PMH/PSH: as above. FH/SH: no tobacco, no etoh, no ivda. All: nkda. ON exam: Normal neurological exam with no focal deficits, no ataxia. [place] Shrestha pike manuever is negative at this time. No nystagmus, no cerebellar signs. Past Patient History - Infectious Disease Hx of Infectious Diseases: None - Tetanus Immunizations Tetanus Immunization: Unknown - Past Medical History & Family History Past Medical History?: Yes - Past Social History Smoking Status: Never Smoked - CARDIAC Hx Cardiac Disorders: Yes Hx Hypertension: Yes - PULMONARY Hx Respiratory Disorders: Yes Hx Asthma: No Hx Chronic Obstructive Pulmonary Disease (COPD): Yes Hx Emphysema: Yes - NEUROLOGICAL Hx Neurological Disorder: No - HEENT Hx HEENT Problems: No - RENAL Hx Chronic Kidney Disease: No - ENDOCRINE/METABOLIC Hx Endocrine Disorders: Yes Hx Diabetes Mellitus Type 2: Yes - HEMATOLOGICAL/ONCOLOGICAL Hx Blood Disorders: No Hx AIDS: No Hx Human Immunodeficiency Virus (HIV): No - INTEGUMENTARY Hx Dermatological Problems: No - MUSCULOSKELETAL/RHEUMATOLOGICAL Hx Musculoskeletal Disorders: No Hx Falls: No - GASTROINTESTINAL Hx Gastrointestinal Disorders: No - GENITOURINARY/GYNECOLOGICAL Hx Genitourinary Disorders: No - PSYCHIATRIC Hx Psychophysiologic Disorder: No Hx Substance Use: No - SURGICAL HISTORY Hx Surgeries: Yes Hx Coronary Stent: Yes Other/Comment: Shoulder surgery - ANESTHESIA Hx Anesthesia: Yes Hx Anesthesia Reactions: Yes (vomiting) Meds Allergies/Adverse Reactions: Allergies Allergy/AdvReac Type Severity Reaction Status Date / Time No Known Allergies Allergy Verified 08/11/17 10:40 - Medications Medications: Current Medications Acetaminophen (Tylenol 325mg Tab) 650 mg PO Q6 PRN PRN Reason: Pain, Mild (1-3) Last Admin: 08/12/17 06:29 Dose: 650 mg Allopurinol (Zyloprim) 100 mg PO DAILY [facility] Last Admin: 08/12/17 09:26 Dose: 100 mg Bacitracin (Bacitracin Oint) 1 applic TOP DAILY [facility] Last Admin: 08/12/17 09:23 Dose: 1 applic Clotrimazole (Lotrimin Af 1%) 1 applic TOP DAILY [facility] Last Admin: 08/12/17 09:25 Dose: 1 applic Clotrimazole (Lotrimin 1% Cream) 1 applic TOP DAILY [facility] Last Admin: 08/12/17 09:24 Dose: 1 applic Diazepam (Valium) 2 mg PO TID PRN PRN Reason: severe dizziness Home Med (Terbinafine Hcl [Lamisil]) 250 mg PO DAILY [facility] Sodium Chloride (Sodium Chloride 0.9%) 1,000 mls @ 100 mls/hr IV .Q10H [facility] Stop: 08/12/17 18:16 Last Admin: 08/12/17 06:30 Dose: 100 mls/hr Indomethacin (Indocin) 50 mg PO TID PRN PRN Reason: Pain, moderate (4-7) Ketoconazole (Nizoral) 1 applic TOP DAILY [facility] Last Admin: 08/12/17 09:25 Dose: 1 applic Meclizine HCl (Antivert) 25 mg PO BID PRN PRN Reason: Dizziness Metformin HCl (Glucophage) 500 mg PO BID [facility] Last Admin: 08/12/17 09:24 Dose: 500 mg Metoclopramide HCl (Reglan) 10 mg IVP Q6 PRN PRN Reason: Nausea/Vomiting Results - Vital Signs Recent Vital Signs: Last Vital Signs Temp 97.6 F 08/12/17 08:32 Pulse 73 08/12/17 09:00 Resp 18 08/12/17 08:32 BP 116/66 08/12/17 08:32 Pulse Ox 99 08/12/17 08:32 - Labs Result Diagrams: 08/12/17 06:15 08/12/17 06:15 Labs: Laboratory Results - last 24 hr 08/11/17 08/11/17 08/11/17 12:20 12:20 18:55 WBC 6.7 RBC 4.74 Hgb 13.5 Hct 41.6 MCV 87.8 MCH 28.5 MCHC 32.4 L RDW 13.6 Plt Count 197 MPV 8.1 Neut % (Auto) 89.6 H Lymph % (Auto) 5.8 L [place] % (Auto) 3.3 Eos % (Auto) 1.0 Baso % (Auto) 0.3 Neut # (Auto) 6.0 Lymph # (Auto) 0.4 L [place] # (Auto) 0.2 Eos # (Auto) 0.1 Baso # (Auto) 0.0 Neutrophils % (Manual) 89 H Band Neutrophils % 1 Lymphocytes % (Manual) 7 L Monocytes % (Manual) 2 Eosinophils % (Manual) 1 Platelet Estimate Normal RBC Morphology Normal Sodium 142 Potassium 4.5 Chloride 103 Carbon Dioxide 27 Anion Gap 17 BUN 24 H Creatinine 1.1 Est GFR ( Amer) > 60 Est GFR (Non-Af Amer) > 60 POC Glucose (mg/dL) 99 Random Glucose 105 Calcium 8.9 Total Bilirubin 0.4 AST 38 ALT 45 Alkaline Phosphatase 75 Total Protein 7.4 Albumin 3.8 Globulin 3.6 Albumin/Globulin Ratio 1.1 Triglycerides Cholesterol LDL Cholesterol Direct HDL Cholesterol 08/11/17 08/12/17 08/12/17 22:52 05:32 06:15 WBC 3.6 L RBC 4.17 L Hgb 11.9 L Hct 36.6 MCV 87.7 MCH 28.6 MCHC 32.6 L RDW 13.4 Plt Count 187 MPV 8.3 Neut % (Auto) 67.2 Lymph % (Auto) 22.5 [place] % (Auto) 9.2 Eos % (Auto) 0.8 Baso % (Auto) 0.3 Neut # (Auto) 2.4 Lymph # (Auto) 0.8 L [place] # (Auto) 0.3 Eos # (Auto) 0.0 Baso # (Auto) 0.0 Neutrophils % (Manual) Band Neutrophils % Lymphocytes % (Manual) Monocytes % (Manual) Eosinophils % (Manual) Platelet Estimate RBC Morphology Sodium Potassium Chloride Carbon Dioxide Anion Gap BUN Creatinine Est GFR ( Amer) Est GFR (Non-Af Amer) POC Glucose (mg/dL) 100 98 Random Glucose Calcium Total Bilirubin AST ALT Alkaline Phosphatase Total Protein Albumin Globulin Albumin/Globulin Ratio Triglycerides Cholesterol LDL Cholesterol Direct HDL Cholesterol 08/12/17 08/12/17 06:15 10:48 WBC RBC Hgb Hct MCV MCH MCHC RDW Plt Count MPV Neut % (Auto) Lymph % (Auto) [place] % (Auto) Eos % (Auto) Baso % (Auto) Neut # (Auto) Lymph # (Auto) [place] # (Auto) Eos # (Auto) Baso # (Auto) Neutrophils % (Manual) Band Neutrophils % Lymphocytes % (Manual) Monocytes % (Manual) Eosinophils % (Manual) Platelet Estimate RBC Morphology Sodium 142 Potassium 3.7 Chloride 102 Carbon Dioxide 30 Anion Gap 14 BUN 17 Creatinine 1.2 Est GFR ( Amer) > 60 Est GFR (Non-Af Amer) > 60 POC Glucose (mg/dL) 98 Random Glucose 104 Calcium 8.0 L Total Bilirubin 0.3 AST 23 ALT 42 Alkaline Phosphatase 55 Total Protein 6.0 L Albumin 3.1 L Globulin 3.0 Albumin/Globulin Ratio 1.0 Triglycerides 57 Cholesterol 118 LDL Cholesterol Direct 53 HDL Cholesterol 34 Assessment & Plan - Assessment and Plan (Free Text) Assessment: 47 yr old male who presents with what appears to be viral gastroenteritis, with normal neurological exam. At this point, I would not recommend any further interventions. PLan: 1. Continue medical management. 2. Strict DM control. Thank you for this consult. Please reconsult us prn Dr. Donny MD, DPN
[2017-08-12 12:51] VITALS: BP 127/69; PULSE 76; TEMP 98.3
--- NOTE | 2017-08-12 15:50 | CT ---
PROCEDURE: CT HEAD WITHOUT CONTRAST. HISTORY: DIZZINESS, HEADACHE COMPARISON: CT head dated 12/28/2016. TECHNIQUE: Axial computed tomography images were obtained through the head/brain without intravenous contrast. Radiation dose: Total exam DLP = 927.5 mGy-cm. This CT exam was performed using one or more of the following dose reduction techniques: Automated exposure control, adjustment of the mA and/or kV according to patient size, and/or use of iterative reconstruction technique. FINDINGS: HEMORRHAGE: No intracranial hemorrhage. BRAIN: No mass effect or edema. No atrophy or chronic microvascular ischemic changes. Dilated perivascular space left basal ganglia. VENTRICLES: Unremarkable. No hydrocephalus. CALVARIUM: Unremarkable. PARANASAL SINUSES: Unremarkable as visualized. No significant inflammatory changes. MASTOID AIR CELLS: Unremarkable as visualized. No inflammatory changes. OTHER FINDINGS: None. IMPRESSION: No acute intracranial pathology.
--- NOTE | 2017-08-12 20:58 | CP.PCM.DIS ---
Provider - Provider Date of Admission: 08/11/17 16:18 Attending physician: Jose Hidalgo MD Time Spent in preparation of Discharge (in minutes): 15 Diagnosis - Discharge Diagnosis (1) Headache Status: Acute (2) DVT prophylaxis Status: Acute (3) Dizziness Status: Acute Hospital Course - Lab Results Lab Results: Most Recent Lab Values WBC 3.6 K/uL (4.8-10.8) L 08/12/17 06:15 RBC 4.17 Mil/uL (4.40-5.90) L 08/12/17 06:15 Hgb 11.9 g/dL (12.0-18.0) L 08/12/17 06:15 Hct 36.6 % (35.0-51.0) 08/12/17 06:15 MCV 87.7 fl (80.0-94.0) 08/12/17 06:15 MCH 28.6 pg (27.0-31.0) 08/12/17 06:15 MCHC 32.6 g/dL (33.0-37.0) L 08/12/17 06:15 RDW 13.4 % (11.5-14.5) 08/12/17 06:15 Plt Count 187 K/uL (130-400) 08/12/17 06:15 MPV 8.3 fl (7.2-11.7) 08/12/17 06:15 Neut % (Auto) 67.2 % (50.0-75.0) 08/12/17 06:15 Lymph % (Auto) 22.5 % (20.0-40.0) 08/12/17 06:15 [place] % (Auto) 9.2 % (0.0-10.0) 08/12/17 06:15 Eos % (Auto) 0.8 % (0.0-4.0) 08/12/17 06:15 Baso % (Auto) 0.3 % (0.0-2.0) 08/12/17 06:15 Neut # (Auto) 2.4 K/uL (1.8-7.0) 08/12/17 06:15 Lymph # (Auto) 0.8 K/uL (1.0-4.3) L 08/12/17 06:15 [place] # (Auto) 0.3 K/uL (0.0-0.8) 08/12/17 06:15 Eos # (Auto) 0.0 K/uL (0.0-0.7) 08/12/17 06:15 Baso # (Auto) 0.0 K/uL (0.0-0.2) 08/12/17 06:15 Neutrophils % (Manual) 89 % (42-75) H 08/11/17 12:20 Band Neutrophils % 1 % (0-2) 08/11/17 12:20 Lymphocytes % (Manual) 7 % (20-50) L 08/11/17 12:20 Monocytes % (Manual) 2 % (0-10) 08/11/17 12:20 Eosinophils % (Manual) 1 % (0-7) 08/11/17 12:20 Platelet Estimate Normal (NORMAL) 08/11/17 12:20 RBC Morphology Normal (NORMAL) 08/11/17 12:20 Sodium 142 mmol/l (132-148) 08/12/17 06:15 Potassium 3.7 MMOL/L (3.6-5.0) 08/12/17 06:15 Chloride 102 mmol/L (98-107) 08/12/17 06:15 Carbon Dioxide 30 mmol/L (22-30) 08/12/17 06:15 Anion Gap 14 (10-20) 08/12/17 06:15 BUN 17 mg/dl (9-20) 08/12/17 06:15 Creatinine 1.2 mg/dl (0.8-1.5) 08/12/17 06:15 Est GFR ( Amer) > 60 08/12/17 06:15 Est GFR (Non-Af Amer) > 60 08/12/17 06:15 POC Glucose (mg/dL) 98 mg/dL (65-110) 08/12/17 10:48 Random Glucose 104 mg/dL (75-110) 08/12/17 06:15 Calcium 8.0 mg/dL (8.4-10.2) L 08/12/17 06:15 Total Bilirubin 0.3 mg/dl (0.2-1.3) 08/12/17 06:15 AST 23 U/L (17-59) 08/12/17 06:15 ALT 42 U/L (21-72) 08/12/17 06:15 Alkaline Phosphatase 55 U/L (38-126) 08/12/17 06:15 Total Protein 6.0 G/DL (6.3-8.2) L 08/12/17 06:15 Albumin 3.1 g/dL (3.5-5.0) L 08/12/17 06:15 Globulin 3.0 gm/dL (2.2-3.9) 08/12/17 06:15 Albumin/Globulin Ratio 1.0 (1.0-2.1) 08/12/17 06:15 Triglycerides 57 mg/DL (0-149) 08/12/17 06:15 Cholesterol 118 mg/dL (0-199) 08/12/17 06:15 LDL Cholesterol Direct 53 mg/dL (0-129) 08/12/17 06:15 HDL Cholesterol 34 MG/DL (30-70) 08/12/17 06:15 - Hospital Course Hospital Course: neuro consult ct head ivf Discharge Exam - Head Exam Head Exam: ATRAUMATIC, NORMAL INSPECTION, NORMOCEPHALIC Discharge Plan - Follow Up Plan Condition: FAIR Disposition: HOME/ ROUTINE Instructions: Vertigo (a Type of Dizziness) Additional Instructions: feeling well, no dizziness.ct head negative. cleared by chuck f/u josefina monday, rted prn, meds per med rec, hydration/glucose control final dx-dizziness/vertigo Referrals: Milton Sánchez MD [Family Provider] -
== END 2017-08-12 19:00 | disposition home or self-care (01) ==
LOC: H.ER 10:23 → H.ERHOLD 16:18 → H.TEL 21:42
PROVIDERS: ADMIT Family Medicine; ATTEND Family Medicine
DX: R42 Dizziness and giddiness (principal); E11.9 Type 2 diabetes mellitus without complications; I10 Essential (primary) hypertension; J43.9 Emphysema, unspecified; Z95.5 Presence of coronary angioplasty implant and graft; M10.9 Gout, unspecified; R51 Headache
CPT/HCPCS: 36415; 70450; 80053; 80061; 82948; 83036; 85025; 93005; 99285; G0378; J7040

== ENCOUNTER 2018-05-14 14:30 | Emergency (ER) | payer SELFPAY ==
[2018-05-14 14:30] VITALS: BMI 26.8
[2018-05-14 14:39] VITALS: BP 137/80; PULSE 90; RESP 18; TEMP 97.5; O2SAT 99
[2018-05-14] MEDS ORDERED: Ciprofloxacin 0.3% OPTH SOLN OS STA (14:50)
--- NOTE | 2018-05-14 14:54 | ED PDOC ---
HPI: Eye Injury/Pain Time Seen by Provider: 05/14/18 14:41 Chief Complaint (Nursing): ENT Problem Chief Complaint (Provider): Eye problem History Per: Patient History/Exam Limitations: no limitations Onset/Duration Of Symptoms: Days (2x) Current Symptoms Are (Timing): Still Present Injury To Eye?: No Severity: Moderate Associated Symptoms: Other (redness). denies: Pain, Decreased Vision, FB Sensation, Discharge From Eye Additional Complaint(s): 48 year old male wit no pertinent past medical history presents to the ED for an evaluation of left eye redness ongoing for 2x days. Patient denies having pain of the left eye, discharge, or visual changes. Patient denies having trauma, using contact lenses, or having a foreign body sensation. PMD: None provided. Past Medical History Reviewed: Historical Data, Nursing Documentation, Vital Signs Vital Signs: Last Vital Signs Temp 97.5 F L 05/14/18 14:37 Pulse 90 05/14/18 14:37 Resp 18 05/14/18 14:37 BP 137/80 05/14/18 14:37 Pulse Ox 99 05/14/18 14:37 PABLO Report Viewed: Yes - Medical History PMH: Anxiety, CAD (with stent), COPD, Depression, Diabetes (NIDDM), Emphysema, HTN Denies: Asthma, HIV, Chronic Kidney Disease - Surgical History Surgical History: Coronary Stent - Family History Family History: States: No Known Family Hx - Social History Current smoker - smoking cessation education provided: No Alcohol: None Drugs: Denies - Immunization History Hx Tetanus Toxoid Vaccination: No Hx Influenza Vaccination: No Hx Pneumococcal Vaccination: No - Home Medications Home Medications: Ambulatory Orders Medication Instructions Recorded metFORMIN [glucOPHAGE] 500 mg PO BID 06/20/15 Allopurinol [Zyloprim] 100 mg PO DAILY #10 tab 08/09/17 Indomethacin [Indocin] 50 mg PO TID PRN #9 cap 08/09/17 Bacitracin Ointment [Bacitracin] 1 appl TOP DAILY 08/11/17 Ciprofloxacin [Cipro] 500 mg PO BID 08/11/17 Clotrimazole 1 appl TOP DAILY 08/11/17 Clotrimazole 1% Cream [Lotrimin 1% 1 appl TOP DAILY 08/11/17 CREAM] Ketoconazole 2% Cr [Nizoral] 1 appl TOP DAILY 08/11/17 Terbinafine HCl [Lamisil] 250 mg PO DAILY 08/11/17 Ciprofloxacin 0.3% [Ciloxan 0.3% 1 - 2 drop LEFTEYE Q4 #1 bottle 05/14/18 Emery FRAZIER] - Allergies Allergies/Adverse Reactions: Allergies Allergy/AdvReac Type Severity Reaction Status Date / Time No Known Allergies Allergy Verified 08/11/17 10:40 Review of Systems ROS Statement: Except As Marked, All Systems Reviewed And Found Negative Eyes: Positive for: Redness (left eye). Negative for: Pain, Vision Change, Ot her (foreign body sensation, discharge from eye.) Physical Exam - Reviewed Nursing Documentation Reviewed: Yes Vital Signs Reviewed: Yes - Physical Exam Appears: Positive for: Well, Non-toxic, No Acute Distress Head Exam: Positive for: ATRAUMATIC, NORMOCEPHALIC Skin: Positive for: Normal Color, Warm, Dry Eye Exam: Positive for: EOMI, PERRL, Other (small subconjunctival hemorrhage to the left lateral canthus). Negative for: Periorbital swelling, Periorbital tenderness Neurologic/Psych: Positive for: Alert, Oriented (3x) - ECG O2 Sat by Pulse Oximetry: 99 (RA) Pulse Ox Interpretation: Normal Medical Decision Making Medical Decision Makin:41 Initial impression: 48 year old male with conjunctivitis Initial plan: * zulema botellojohnny jonny 1 drop os Scribe Attestation: Documented bySarika Hendrickson, acting as a scribe for Redd Caceres Provider Scribe Attestation: All medical record entries made by the Scribe were at my direction and personall y dictated by me. I have reviewed the chart and agree that the record accurately reflects my personal performance of the history, physical exam, medical decision making, and the department course for this patient. I have also personally directed, reviewed, and agree with the discharge instructions and disposition. Disposition - Clinical Impression Clinical Impression: Subconjunctival hemorrhage of left eye, Conjunctivitis - Patient ED Disposition Is Patient to be Admitted: No - Disposition Referrals: Max Julio MD [Staff Provider] - [facility] [Outside] Disposition: Routine/Home Disposition Time: 14:52 Condition: STABLE Additional Instructions: Ciloxan - 1-2 drop(s) in LEFT eye every 4 hours for 7 days FOLLOW UP WITH YOUR DOCTOR OR DR. JULIO FOR FURTHER EVALUATION RETURN TO ED IMMEDIATELY IF SYMPTOMS WORSEN SUMI AG, thank you for letting us take care of you today. Your provider was Richie Richmond MD and you were treated for LT EYE REDNESS. The emergency medical care you received today was directed at your acute symptoms. If you were prescribed any medication, please fill it and take as directed. It may take several days for your symptoms to resolve. Return to the Emergency Department if your symptoms worsen, do not improve, or if you have any other problems. Please contact your doctor or call one of the physicians/clinics you have been referred to that are listed on the Patient Visit Information form that is included in your discharge packet. Bring any paperwork you were given at [facility] with you along with any medications you are taking to your follow up visit. Our treatment cannot replace ongoing medical care by a primary care provider outside of the emergency department. Thank you for allowing the [employer] [employer] team to be part of your care today. If you had an X-Ray or CT scan: A Radiologist will review the ED reading if any change in treatment is needed we will contact you. If you had a blood, urine, or wound culture: It will take several days for the results, if any change in treatment is needed we will contact you. If you had an STI test: It will take 48 hours for the results. Please call after 1 week if you have not heard back. Instructions: Conjunctivitis ([place]) (DC), How to Use Eye Drops, Subconjunctival Hemorrhage Forms: [employer] (Japanese) Print Language: PARAGUAYAN
== END 2018-05-14 15:07 | disposition home or self-care (01) ==
LOC: H.ER 14:30
DX: H11.32 Conjunctival hemorrhage, left eye (principal); H10.9 Unspecified conjunctivitis; E11.9 Type 2 diabetes mellitus without complications; F41.9 Anxiety disorder, unspecified; I10 Essential (primary) hypertension; Z79.84 Long term (current) use of oral hypoglycemic drugs; Z95.5 Presence of coronary angioplasty implant and graft

== ENCOUNTER 2018-06-30 22:18 | Emergency (ER) | payer MEDICAID, OTHER ==
[2018-06-30 22:20] VITALS: BMI 26.8
[2018-06-30 22:28] VITALS: RESP 16; TEMP 97.9
[2018-06-30] MEDS ORDERED: Albuterol 0.083% Inhal Sol (2.5 mg/3 mL) UD INH STA (23:08)
--- NOTE | 2018-06-30 23:26 | ED PDOC ---
History of Present Illness History of Present Illness: 48 year old with hx of pre-DM on metformin, CAD, HTN presenting with cough and post-tussive nausea/vomiting. States he feels like he has congestion in his chest and coughs so hard that he feels like he is going to vomit. States he has subjective fevers but never checked his temperature. States he has some phlegm- white. No sick contacts or recent travel. PMD: Dr. Esqueda at [place] HPI: Influenza Time Seen by Provider: 06/30/18 22:44 Chief Complaint: Cough, Cold, Congestion History Per: Patient Exam Limitations: no limitations Onset/Duration Of Symptoms: Days Symptoms include: fever, cough Past Medical History Reviewed: Historical Data, Nursing Documentation Vital Signs: Last Vital Signs Temp 97.9 F 06/30/18 22:26 Pulse 82 06/30/18 22:26 Resp 16 06/30/18 22:26 BP 154/88 H 06/30/18 22:26 Pulse Ox 100 06/30/18 22:26 - Medical History PMH: Anxiety, CAD (with stent), COPD, Depression, Diabetes (NIDDM), Emphysema, HTN Denies: Asthma, HIV, Chronic Kidney Disease - Surgical History Surgical History: Coronary Stent - Family History Family History: States: Unknown Family Hx - Immunization History Hx Tetanus Toxoid Vaccination: No Hx Influenza Vaccination: No Hx Pneumococcal Vaccination: No - Home Medications Home Medications: Ambulatory Orders Medication Instructions Recorded metFORMIN [glucOPHAGE] 500 mg PO BID 06/20/15 Allopurinol [Zyloprim] 100 mg PO DAILY #10 tab 08/09/17 Indomethacin [Indocin] 50 mg PO TID PRN #9 cap 08/09/17 Bacitracin Ointment [Bacitracin] 1 appl TOP DAILY 08/11/17 Ciprofloxacin [Cipro] 500 mg PO BID 08/11/17 Clotrimazole 1 appl TOP DAILY 08/11/17 Clotrimazole 1% Cream [Lotrimin 1% 1 appl TOP DAILY 08/11/17 CREAM] Ketoconazole 2% Cr [Nizoral] 1 appl TOP DAILY 08/11/17 Terbinafine HCl [Lamisil] 250 mg PO DAILY 08/11/17 Ciprofloxacin 0.3% [Ciloxan 0.3% 1 - 2 [facility]YE [facility] Benzonatate [Tessalon Perle] 100 mg PO TID #20 capsule 07/01/18 - Allergies Allergies/Adverse Reactions: Allergies Allergy/AdvReac Type Severity Reaction Status Date / Time No Known Allergies Allergy Verified 08/11/17 10:40 Physical Exam - Reviewed Nursing Documentation Reviewed: Yes Vital Signs Reviewed: Yes - Physical Exam Appears: Positive for: Well, Non-toxic, No Acute Distress Head Exam: Positive for: ATRAUMATIC, NORMAL INSPECTION, NORMOCEPHALIC Skin: Positive for: Normal Color, Warm, DRY Eye Exam: Positive for: EOMI, Normal appearance, PERRL ENT: Positive for: Normal ENT Inspection Neck: Positive for: Normal, Painless ROM Cardiovascular/Chest: Positive for: Regular Rate, Rhythm Respiratory: Positive for: CNT, Normal Breath Sounds Gastrointestinal/Abdominal: Positive for: Normal Exam, Soft Back: Positive for: Normal Inspection Extremity: Positive for: Normal ROM Neurological/Psych: Positive for: Awake, Alert, Normal Tone Medical Decision Making Medical Decision Making: A/P: Hx of CAD, DM, HTN presenting with cough --Patient is well appearing, normal vitals --Cough is likely related to URI --Will give albuterol for bronchospastic cough and CXR to rule out pneumonia 3AM --CXR negative --Patient sleeping soundly throughout ED stay without coughing --Advised patient to followup in [place] - ECG O2 Sat by Pulse Oximetry: 100 Disposition - Clinical Impression Clinical Impression: Cough - Patient ED Disposition Is Patient to be Admitted: No - Disposition [facility] Disposition: Routine/Home Disposition Time: 03:34 Condition: IMPROVED Prescriptions: Benzonatate [Tessalon Perle] 100 mg PO TID #20 capsule Instructions: Cough in Adults Forms: [employer] (Maori)
[2018-07-01] MEDS ORDERED: Albuterol 0.083% Inhal Sol (2.5 mg/3 mL) UD ONE (00:31)
[2018-07-01 06:42] VITALS: BP 149/82; PULSE 79; O2SAT 99
--- NOTE | 2018-07-01 08:38 | RAD ---
Date of service: 06/30/2018 HISTORY: cough, fever COMPARISON: No prior. TECHNIQUE: Chest PA and lateral FINDINGS: LUNGS: No active pulmonary disease. PLEURA: No significant pleural effusion identified. No pneumothorax apparent. CARDIOVASCULAR: No aortic atherosclerotic calcification present. Normal cardiac size. No pulmonary vascular congestion. OSSEOUS STRUCTURES: No significant abnormalities. VISUALIZED UPPER ABDOMEN: Normal. OTHER FINDINGS: None. IMPRESSION: No active disease.
== END 2018-07-01 04:17 | disposition home or self-care (01) ==
LOC: H.ER 22:18
DX: R05 Cough (principal); E11.9 Type 2 diabetes mellitus without complications; Z86.59 Personal history of other mental and behavioral disorders; I10 Essential (primary) hypertension; J44.9 Chronic obstructive pulmonary disease, unspecified; Z79.84 Long term (current) use of oral hypoglycemic drugs; Z95.5 Presence of coronary angioplasty implant and graft

== ENCOUNTER 2018-07-20 22:21 | Emergency (ER) | payer MEDICAID, OTHER ==
[2018-07-20 22:22] VITALS: BMI 26.8
[2018-07-20 22:49] VITALS: BP 137/81; PULSE 81; RESP 18; TEMP 98.6; O2SAT 99
--- NOTE | 2018-07-20 23:40 | ED PDOC ---
Lower Extremity Pain/Injury Time Seen by Provider: 07/20/18 23:00 Chief Complaint (Nursing): Lower Extremity Problem/Injury History Per: Patient History/Exam Limitations: no limitations Onset/Duration Of Symptoms: Days Additional Complaint(s): 48 yo M with history of DM and chronic leg edema presents with a bump on his right lower leg for 2-3 days. Pt states he was unsure if he should pop it or not. He is currently homeless and has not seen his PMD recently. He reports always having swelling to legs since he sleeps sitting up a lot. He states the current swelling is improved. Pt denies injuries, pain, redness, chest pain, SOB, difficulty walking. Denies recent travel, immobilization, surgery, hormone use, calf pain, h/o blood clots or bleeding disorders PMD:Gonzalo Past Medical History Reviewed: Historical Data, Nursing Documentation, Vital Signs Vital Signs: Last Vital Signs Temp 98.6 F 07/20/18 22:48 Pulse 81 07/20/18 22:48 Resp 18 07/20/18 22:48 BP 137/81 07/20/18 22:48 Pulse Ox 99 07/20/18 22:48 - Medical History PMH: Anxiety, CAD (with stent), COPD, Depression, Diabetes (NIDDM), Emphysema, HTN Denies: Asthma, HIV, Chronic Kidney Disease - Surgical History Surgical History: Coronary Stent - Family History Family History: States: Unknown Family Hx - Social History Current smoker - smoking cessation education provided: No Alcohol: None Drugs: Denies - Immunization History Hx Tetanus Toxoid Vaccination: No Hx Influenza Vaccination: No Hx Pneumococcal Vaccination: No - Home Medications Home Medications: Ambulatory Orders Medication Instructions Recorded metFORMIN [glucOPHAGE] 500 mg PO BID 06/20/15 Allopurinol [Zyloprim] 100 mg PO DAILY #10 tab 08/09/17 Indomethacin [Indocin] 50 mg PO TID PRN #9 cap 08/09/17 Bacitracin Ointment [Bacitracin] 1 appl TOP DAILY 08/11/17 Ciprofloxacin [Cipro] 500 mg PO BID 08/11/17 Clotrimazole 1 appl TOP DAILY 08/11/17 Clotrimazole 1% Cream [Lotrimin 1% 1 appl TOP DAILY 08/11/17 CREAM] Ketoconazole 2% Cr [Nizoral] 1 appl TOP DAILY 08/11/17 Terbinafine HCl [Lamisil] 250 mg PO DAILY 08/11/17 Ciprofloxacin 0.3% [Ciloxan 0.3% 1 - 2 drop LEFTEYE Q4 #1 bottle 05/14/18 Emery FRAZIER] Albuterol HFA [Ventolin HFA 90 2 puff IH [id number] #1 puff 07/01/18 mcg/actuation (8 g)] Benzonatate [Tessalon Perle] 100 mg PO TID #20 capsule 07/01/18 - Allergies Allergies/Adverse Reactions: Allergies Allergy/AdvReac Type Severity Reaction Status Date / Time No Known Allergies Allergy Verified 08/11/17 10:40 Review of Systems Constitutional: Negative for: Fever Cardiovascular: Negative for: Chest Pain Respiratory: Negative for: Shortness of Breath, Hemoptysis, Pleuritic Pain Musculoskeletal: Negative for: Leg Pain Physical Exam - Reviewed Nursing Documentation Reviewed: Yes - Physical Exam Comments: GENERALIZED APPEARANCE: Patient is awake, alert, oriented x3 in no acute distress. pt with 2 large bags at bedside SKIN: Warm, dry; (-) cyanosis. EYES: (-) conjunctival pallor. ENMT: Mucous membranes moist. NECK: (-) tenderness, (-) stiffness, (-) lymphadenopathy. CHEST AND RESPIRATORY: (-) rales, (-) rhonchi, (-) wheezes; breath sounds equal bilaterally. HEART AND CARDIOVASCULAR: (-) irregularity; (-) murmur, (-) gallop. LOWER EXTREMITY: pulses + 2, bilateral diffuse edema equal, (+)small fluctuant area on right anterior torres, no erythema, no tenderness to palpation or signs of infection (+) FROM CARDIOVASCULAR: (+) distal pulse. NEUROLOGIC: (+) distal sensation. - ECG O2 Sat by Pulse Oximetry: 99 Medical Decision Making Medical Decision Makin initial eval, 48 yo homeless M h/o DM presents with concern regarding fluctuant bump on leg, with chronic lower leg edema no signs of infections at this time, no indication to drain, likely due to edema dressing and trace wrap applied, podiatry clinic information given discussed diagnosis, treatment, return precautions and f/u with pt who is understanding, in agreement and stable for dc Disposition - Clinical Impression Clinical Impression: Leg edema - Patient ED Disposition Is Patient to be Admitted: No Counseled Patient/Family Regarding: Studies Performed, Diagnosis, Need For Followup - Disposition Referrals: Podiatry Clinic [Outside] Disposition: Routine/Home Disposition Time: 23:30 Condition: STABLE Additional Instructions: Return to ED for new or worsening symptoms, fever >100.4, numbness or tingling, changes in skin color. Follow up with the foot and ankle clinic as listed as soon as possible. Rest and elevate your legs. Wear tight socks for compression. Do not open the area that is soft. Keep it covered and clean. Instructions: Swelling Forms: [facility] ([place]ese) Print Language: BOTSWANAN - POA Present On Arrival: None
== END 2018-07-21 00:02 | disposition home or self-care (01) ==
LOC: H.ER 22:21
DX: R60.0 Localized edema (principal); E11.9 Type 2 diabetes mellitus without complications; I10 Essential (primary) hypertension; I25.10 Atherosclerotic heart disease of native coronary artery without angina pectoris; Z79.84 Long term (current) use of oral hypoglycemic drugs; Z95.5 Presence of coronary angioplasty implant and graft; J44.9 Chronic obstructive pulmonary disease, unspecified

== ENCOUNTER 2018-08-14 23:04 | Emergency (ER) | payer MEDICAID, OTHER ==
[2018-08-14 23:05] VITALS: BMI 26.8
[2018-08-14 23:26] VITALS: RESP 18; TEMP 98.4
--- NOTE | 2018-08-15 00:24 | ED PDOC ---
Lower Extremity Pain/Injury Time Seen by Provider: 08/14/18 23:43 Chief Complaint (Nursing): Lower Extremity Problem/Injury Chief Complaint (Provider): right leg pain History Per: Patient History/Exam Limitations: no limitations Onset/Duration Of Symptoms: Days (2 weeks) Current Symptoms Are (Timing): Still Present Additional Complaint(s): 48 y/o male history of diabetes presents for evaluation of right leg pain/swelling x 2 weeks. Patient reports history of chronic leg swelling, but states he has been experiencing persistent clear drainage from right leg. Emilee rodriguez is homeless, states he has not been able to follow up with anybody for his legs. Patient denies fever, nausea/vomiting, chest pain, shortness of breath, palpitations. Past Medical History Reviewed: Historical Data, Nursing Documentation, Vital Signs Vital Signs: Last Vital Signs Temp 98.4 F 08/14/18 23:24 Pulse 82 08/14/18 23:24 Resp 18 08/14/18 23:24 BP 142/86 08/14/18 23:24 Pulse Ox 99 08/14/18 23:24 Primary Care Physician: Milton Sánchez - Medical History PMH: Anxiety, CAD (with stent), COPD, Depression, Diabetes (NIDDM), Emphysema, HTN Denies: Asthma, HIV, Chronic Kidney Disease - Surgical History Surgical History: Coronary Stent - Family History Family History: States: Unknown Family Hx - Immunization History Hx Tetanus Toxoid Vaccination: No Hx Influenza Vaccination: No Hx Pneumococcal Vaccination: No - Home Medications Home Medications: Ambulatory Orders Medication Instructions Recorded metFORMIN [glucOPHAGE] 500 mg PO BID 06/20/15 Allopurinol [Zyloprim] 100 mg PO DAILY #10 tab 08/09/17 Indomethacin [Indocin] 50 mg PO TID PRN #9 cap 08/09/17 Bacitracin Ointment [Bacitracin] 1 appl TOP DAILY 08/11/17 Ciprofloxacin [Cipro] 500 mg PO BID 08/11/17 Clotrimazole 1 appl TOP DAILY 08/11/17 Clotrimazole 1% Cream [Lotrimin 1% 1 appl TOP DAILY 08/11/17 CREAM] Ketoconazole 2% Cr [Nizoral] 1 appl TOP DAILY 08/11/17 Terbinafine HCl [Lamisil] 250 mg PO DAILY 08/11/17 Ciprofloxacin 0.3% [Ciloxan 0.3% 1 - 2 drop LEFTEYE Q4 #1 bottle 05/14/18 Emery FRAZIER] Albuterol HFA [Ventolin HFA 90 2 puff IH [id number] #1 puff 07/01/18 mcg/actuation (8 g)] Benzonatate [Tessalon Perle] 100 mg PO TID #20 capsule 07/01/18 - Allergies Allergies/Adverse Reactions: Allergies Allergy/AdvReac Type Severity Reaction Status Date / Time No Known Allergies Allergy Verified 08/11/17 10:40 Review of Systems ROS Statement: Except As Marked, All Systems Reviewed And Found Negative Musculoskeletal: Positive for: Leg Pain Physical Exam - Reviewed Nursing Documentation Reviewed: Yes Vital Signs Reviewed: Yes - Physical Exam Appears: Positive for: Well, Non-toxic, No Acute Distress Head Exam: Positive for: ATRAUMATIC, NORMAL INSPECTION, NORMOCEPHALIC Skin: Positive for: Normal Color Eye Exam: Positive for: Normal appearance Cardiovascular/Chest: Positive for: Regular Rate, Rhythm Respiratory: Positive for: Normal Breath Sounds Gastrointestinal/Abdominal: Positive for: Normal Exam Back: Positive for: Normal Inspection Extremity: Positive for: Normal ROM, Swelling (bilateral lower extremity edema, R>L. [id number] ulceration right anterior torres without drainage, odor, or surrounding erythema. ) Neurological/Psych: Positive for: Awake, Alert, Oriented (x3) - Laboratory Results Result Diagrams: 08/15/18 01:30 08/15/18 01:30 - ECG O2 Sat by Pulse Oximetry: 99 - Progress ED Course And Treament: -cbc -cmp -lactic acid -blood cultures -bnp -venous duplex lower extremities -IV toradol Bilateral lower extremities venous duplex. Indication: Bilateral leg swelling with drainage. Findings: Real-time ultrasound images of the deep venous system with Doppler evaluation. Normal compression, spontaneity and augmentation. Normal color Doppler. No intraluminal thrombus is seen. IMPRESSION: No evidence of deep venous thrombosis Right leg wound cleaned, bandage applied Patient educated on findings, discharged with instructions on wound care Advised compression stocking, elevate legs at rest Follow up wound care center Return precautions given Disposition - Clinical Impression Clinical Impression: Leg edema, Leg ulcer - Patient ED Disposition Is Patient to be Admitted: No Counseled Patient/Family Regarding: Studies Performed, Diagnosis, Need For Followup - Disposition Referrals: Podiatry Clinic [Outside] [facility] [Outside] [facility] [Outside] Disposition: Routine/Home Disposition Time: 03:15 Condition: STABLE Instructions: Dependent Edema (DC), Wound Care
[2018-08-15 01:36] LABS: BASO % 0.4 % (0.0-2.0); EOS # 0.3 K/uL (0.0-0.7); HEMOGLOBIN 11.5 g/dL (12.0-18.0); LYMPH # 1.6 K/uL (1.0-4.3); LYMPH % 32.9 % (20.0-40.0); MEAN CELL VOLUME 84.5 fl (80.0-94.0); MEAN CORPUSCULAR HEMOGLOBIN 27.3 pg (27.0-31.0); MEAN CORPUSCULAR HGB CONC 32.3 g/dL (33.0-37.0); MEAN PLATELET VOLUME 8.1 fl (7.2-11.7); MONO # 0.6 K/uL (0.0-0.8); MONO % 11.8 % (0.0-10.0); NEUT # 2.4 K/uL (1.8-7.0); NEUT % 48.9 % (50.0-75.0); NRBC % 0.1 % (0.0-0.0); RBC 4.22 Mil/uL (4.40-5.90); RED CELL DISTRIBUTION WIDTH 15.2 % (11.5-14.5); WHITE BLOOD COUNT 4.8 K/uL (4.8-10.8)
[2018-08-15 01:47] LABS: ALBUMIN 4.2 g/dL (3.5-5.0); ALT/SGPT 19 U/L (21-72); AST/SGOT 44 U/L (17-59); BLOOD UREA NITROGEN 21 mg/dl (9-20); GFR NON-AFRICAN AMERICAN > 60
[2018-08-15 01:55] LABS: B-TYPE NATRIURETIC PEPTIDE 222 pg/ml (0-900)
[2018-08-15 04:13] VITALS: BP 127/82; PULSE 81; O2SAT 98
--- NOTE | 2018-08-15 11:20 | US ---
Date of service: 08/15/2018 PROCEDURE: Bilateral lower extremity venous duplex Doppler. HISTORY: All r/out DVT COMPARISON: None available. TECHNIQUE: Bilateral common femoral, superficial femoral, popliteal and posterior tibial veins were evaluated. Flow was assessed with color Doppler, compressibility, assessment of phasic flow and augmentation response. FINDINGS: COMMON FEMORAL VEIN: Right CFV: Unremarkable. Left CFV: Unremarkable. SUPERFICIAL FEMORAL VEIN: Right SFV: Unremarkable. Left SFV: Unremarkable. POPLITEAL VEIN: Right Popliteal: Unremarkable. Left Popliteal: Unremarkable. POSTERIOR TIBIAL VEIN: Right PTV: Unremarkable. Left PTV: Unremarkable. OTHER FINDINGS: None. IMPRESSION: No evidence of deep venous thrombosis. Concordant findings (preliminary report) provided by [facility].
== END 2018-08-15 04:11 | disposition home or self-care (01) ==
LOC: H.ER 23:04
DX: R60.0 Localized edema (principal); S81.801A Unspecified open wound, right lower leg, initial encounter; Z95.5 Presence of coronary angioplasty implant and graft; I10 Essential (primary) hypertension; Z86.59 Personal history of other mental and behavioral disorders; E11.9 Type 2 diabetes mellitus without complications; I25.10 Atherosclerotic heart disease of native coronary artery without angina pectoris; J44.9 Chronic obstructive pulmonary disease, unspecified; Z79.84 Long term (current) use of oral hypoglycemic drugs
CPT/HCPCS: 80053; 83605; 83880; 85025; 87040; 93970; 96374; 99284; J1885

== ENCOUNTER 2018-09-01 09:49 | Emergency (ER) | payer OTHER, MEDICAID ==
[2018-09-01 10:05] VITALS: BMI 40.1
[2018-09-01 10:06] VITALS: RESP 18
[2018-09-01 11:19] LABS: BASO % 0.7 % (0.0-2.0); EOS # 0.4 K/uL (0.0-0.7); EOS % 8.8 % (0.0-4.0); HEMOGLOBIN 11.7 g/dL (12.0-18.0); LYMPH # 1.3 K/uL (1.0-4.3); LYMPH % 27.8 % (20.0-40.0); MEAN CELL VOLUME 84.5 fl (80.0-94.0); MEAN CORPUSCULAR HEMOGLOBIN 27.7 pg (27.0-31.0); MEAN CORPUSCULAR HGB CONC 32.7 g/dL (33.0-37.0); MEAN PLATELET VOLUME 8.2 fl (7.2-11.7); MONO # 0.6 K/uL (0.0-0.8); MONO % 13.9 % (0.0-10.0); NEUT # 2.2 K/uL (1.8-7.0); NEUT % 48.8 % (50.0-75.0); NRBC % 0.1 % (0.0-0.0); RBC 4.22 Mil/uL (4.40-5.90); RED CELL DISTRIBUTION WIDTH 15.2 % (11.5-14.5); WHITE BLOOD COUNT 4.5 K/uL (4.8-10.8)
[2018-09-01 11:42] LABS: ALB/GLOB RATIO 1.2 (1.0-2.1); ALBUMIN 4.1 g/dL (3.5-5.0); ALT/SGPT 34 U/L (21-72); AST/SGOT 41 U/L (17-59); BLOOD UREA NITROGEN 27 mg/dl (9-20); CALCIUM 8.8 mg/dL (8.4-10.2); GFR NON-AFRICAN AMERICAN > 60
--- NOTE | 2018-09-01 13:10 | ED PDOC ---
HPI: CCC, URI, Sore Throat Time Seen by Provider: 09/01/18 10:22 Chief Complaint (Nursing): Flu-like Symptoms Chief Complaint (Provider): Sore throat History Per: Patient History/Exam Limitations: no limitations Onset/Duration Of Symptoms: Days Location Of Pain: None, Throat Sick Contacts (Context): None Associated Symptoms: Fever, Chills, Sore Throat, Neck Pain. denies: Cough, Sputum Additional Complaint(s): 48 yo male with HTN and DM presents for evaluation of fever, sore throat and tonsilar swelling. PT did not take temperature at home. Pt states he is very concerned about lyme disease because he has been around a lot of dogs. Pt eating and drinking normally. Past Medical History Vital Signs: Last Vital Signs Temp 98.4 F 09/01/18 10:06 Pulse 86 09/01/18 10:06 Resp 18 09/01/18 10:06 BP 134/80 09/01/18 10:06 Pulse Ox 98 09/01/18 10:06 Primary Care Provider: Non [facility] Provider, - Medical History PMH: Anxiety, CAD (with stent), COPD, Depression, Diabetes (NIDDM), Emphysema, HTN Denies: Asthma, HIV, Chronic Kidney Disease - Surgical History Surgical History: Coronary Stent - Family History Family History: States: Unknown Family Hx - Immunization History Hx Tetanus Toxoid Vaccination: No Hx Influenza Vaccination: No Hx Pneumococcal Vaccination: No - Home Medications Home Medications: Ambulatory Orders Medication Instructions Recorded metFORMIN [glucOPHAGE] 500 mg PO BID 06/20/15 Allopurinol [Zyloprim] 100 mg PO DAILY #10 tab 08/09/17 Indomethacin [Indocin] 50 mg PO TID PRN #9 cap 08/09/17 Bacitracin Ointment [Bacitracin] 1 appl TOP DAILY 08/11/17 Ciprofloxacin [Cipro] 500 mg PO BID 08/11/17 Clotrimazole 1 appl TOP DAILY 08/11/17 Clotrimazole 1% Cream [Lotrimin 1% 1 appl TOP DAILY 08/11/17 CREAM] Ketoconazole 2% Cr [Nizoral] 1 appl TOP DAILY 08/11/17 Terbinafine HCl [Lamisil] 250 mg PO DAILY 08/11/17 Ciprofloxacin 0.3% [Ciloxan 0.3% 1 - 2 drop LEFTEYE Q4 #1 bottle 05/14/18 Emery FRAZIER] Albuterol HFA [Ventolin HFA 90 2 puff IH [id number] #1 puff 07/01/18 mcg/actuation (8 g)] Benzonatate [Tessalon Perle] 100 mg PO TID #20 capsule 07/01/18 - Allergies Allergies/Adverse Reactions: Allergies Allergy/AdvReac Type Severity Reaction Status Date / Time No Known Allergies Allergy Verified 08/11/17 10:40 Review of Systems ROS Statement: Except As Marked, All Systems Reviewed And Found Negative Constitutional: Positive for: Fever (Subjective ). Negative for: Chills ENT: Positive for: Throat Pain, Throat Swelling. Negative for: Ear Pain, Ear Discharge Cardiovascular: Negative for: Chest Pain, Palpitations Respiratory: Positive for: Cough. Negative for: Shortness of Breath Physical Exam - Reviewed Nursing Documentation Reviewed: Yes Vital Signs Reviewed: Yes - Physical Exam Appears: Positive for: Well, Non-toxic, No Acute Distress Head Exam: Positive for: ATRAUMATIC, NORMAL INSPECTION, NORMOCEPHALIC Skin: Positive for: Normal Color, Warm, DRY Eye Exam: Positive for: Normal appearance, PERRL ENT: Positive for: Normal ENT Inspection, Pharynx Is, TM Is/Are Neck: Positive for: Normal, Painless ROM Cardiovascular/Chest: Positive for: Regular Rate, Rhythm Respiratory: Positive for: Normal Breath Sounds. Negative for: Accessory Muscle Use, Respiratory Distress Back: Positive for: Normal Inspection Extremity: Positive for: Normal ROM Neurological/Psych: Positive for: Awake, Alert, Normal Tone - Laboratory Results Result Diagrams: 09/01/18 11:09/01/18 11:01 Lab Results: Total Bilirubin 0.3 mg/dl (0.2-1.3) 09/01/18 11: AST 41 U/L (17-59) 09/01/18 11: ALT 34 U/L (21-72) 09/01/18 11: Alkaline Phosphatase 77 U/L (38-126) 09/01/18 11:01 Total Protein 7.6 G/DL (6.3-8.2) 09/01/18 11: Albumin 4.1 g/dL (3.5-5.0) 09/01/18 11: Globulin 3.5 gm/dL (2.2-3.9) 09/01/18 11:01 Albumin/Globulin Ratio 1.2 (1.0-2.1) 09/01/18 11:01 - ECG O2 Sat by Pulse Oximetry: 98 Medical Decision Making Medical Decision Making: Vitals stable in ER. Pts labs normal. Discussed pending lyme. Dressing on bilateral lower legs. Pt states that he sees Dr. Casarez and does not want dressing removed for evaluation. Disposition - Clinical Impression Clinical Impression: Viral illness - Patient ED Disposition Is Patient to be Admitted: No Counseled Patient/Family Regarding: Diagnosis, Need For Followup - Disposition Disposition: Routine/Home Disposition Time: 13:10 Condition: GOOD Instructions: Viral Pharyngitis Forms: [facility] (Somali)
[2018-09-01 13:27] VITALS: BP 129/84; PULSE 74; TEMP 97.8
[2018-09-01 13:31] VITALS: O2SAT 98
== END 2018-09-01 13:25 | disposition home or self-care (01) ==
LOC: H.ER 09:49
DX: B34.9 Viral infection, unspecified (principal)